=== PATIENT | female | born 1955 | race Caucasian/White ===

== ENCOUNTER 2017-09-03 16:15 | Observation (INO) ==
--- NOTE | 2017-09-03 16:33 | Emergency Department Note ---
Disposition Clinical Impression: Syncope and collapse Fracture of distal fibula Qualifiers: Encounter type: initial encounter Fracture type: closed Fracture morphology: other fracture Laterality: right Qualified Code(s): S82.831A - Other fracture of upper and lower end of right fibula, initial encounter for closed fracture TIA (transient ischemic attack) Qualifiers: Transient cerebral ischemia type: unspecified Qualified Code(s): G45.9 - Transient cerebral ischemic attack, unspecified Disposition: Admitted As Inpatient Condition: Good Referrals: Norberto Henriquez MD [Primary Care Provider] - Forms: ED Satisfaction Letter General Adult HPI - General Chief complaint: ED Syncope Stated complaint: 2 sycople episoides + leg pains Time Seen by Provider: 09/03/17 16:20 Nursing Notes Reviewed: Yes Vital Signs Reviewed: Yes - History of Present Illness HPI Narrative: 62-year-old female presents to the emergency department after having 2 episodes of syncope and collapse of the last couple days. Patient states that she feels a sensation as if the room is spinning, and she blacks out and falls. Patient states she loses consciousness. Patient fell yesterday and injured her right ankle. Patient complaining of left-sided calf pain. Patient also complaining of left shoulder pain. Patient denies any chest pain, pressure, tightness. She denies any palpitations. Patient denies any history of blood clots. Patient not actively having vertigo at this time. - Related Data Home Medications Medication Instructions Recorded Confirmed Atorvastatin [Lipitor] 40 mg PO HS 06/09/17 09/03/17 Cyclobenzaprine [Flexeril] 10 mg PO HS 06/09/17 09/03/17 Insulin Glargine [Lantus] 40 unit SQ QPM 06/09/17 09/03/17 Insulin Glargine [Lantus] 60 unit SQ QAM 06/09/17 09/03/17 Insulin LISPRO [Humalog Kwikpen 15 - 30 unit SQ TID 06/09/17 09/03/17 U-100] Levothyroxine [Synthroid] 75 mcg PO 0630 06/09/17 09/03/17 Meloxicam [Mobic] 7.5 mg PO DAILY 06/09/17 09/03/17 Sertraline [Zoloft] 100 mg PO DAILY 06/09/17 09/03/17 Calcium Carbonate [Calci-Mix] 500 mg PO DAILY 09/02/17 09/03/17 Gabapentin [Neurontin] 100 mg PO TID 09/02/17 09/03/17 Lisinopril [Zestril] 40 mg PO DAILY 09/02/17 09/03/17 metFORMIN [Glucophage] 1,000 mg PO 0800 09/02/17 09/03/17 Alendronate Sodium [Fosamax] 70 mg PO QWEEK 09/03/17 09/03/17 traZODone [TraZODone] 50 mg PO HS 09/03/17 09/03/17 Allergies Allergy/AdvReac Type Severity Reaction Status Date / Time sulfamethoxazole Allergy Gastrointestinal Verified 09/02/17 11:16 [From Bactrim] Upset trimethoprim [From Bactrim] Allergy Gastrointestinal Verified 09/02/17 11:16 Upset All systems ED: reviewed and negative except as stated. Review of Systems: As Per HPI Constitutional: Denies: fever Cardiovascular: Denies: chest pain, palpitations, dyspnea on exertion Respiratory: Denies: cough, dyspnea Gastrointestinal: Denies: abdominal pain, nausea, vomiting Genitourinary: Denies: urgency, dysuria, frequency Musculoskeletal: Reports: other (Right ankle pain, left shoulder pain). Denies : back pain, neck pain Neurological: Reports: vertigo. 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 Absent: scleral icterus - ENT ENT exam: normal exam, normal oropharynx - Neck Neck exam: Present: full ROM, trachea midline. Absent: tenderness, meningismus - Chest Chest inspection: Present: normal inspection, symmetric chest wall rise - Respiratory Respiratory exam: Present: normal lung sounds bilaterally. Absent: respiratory distress, wheezes, stridor - Cardiovascular Cardiovascular exam: Present: regular rate, normal rhythm, normal heart sounds - Abdominal Exam Abdominal exam: Present: soft, Non-Tender. Absent: distention, guarding, rebound - Expanded Lower Extremity Exam Hip/Pelvis exam: Present: other (Tenderness 3 cm above the right lateral malleolus) - Back Exam Back exam: Present: normal inspection, full ROM - Neurological Exam Neurological exam: Present: alert, oriented X3 - Psychiatric Psychiatric exam: Present: normal affect, normal mood Course Vital Signs Temperature 98.3 F 09/03/17 16:21 Pulse Rate 92 09/03/17 16:21 Respiratory Rate 18 09/03/17 16:21 Blood Pressure 170/77 09/03/17 16:21 O2 Sat by Pulse Oximetry 100 09/03/17 16:21 Temperature 98.3 F 09/03/17 16:21 Pulse Rate 86 09/03/17 18:51 Respiratory Rate 18 09/03/17 18:51 Blood Pressure 163/87 09/03/17 18:51 O2 Sat by Pulse Oximetry 97 09/03/17 18:51 Oxygen Delivery Oxygen Delivery Room Air Medical Decision Making - MDM Narrative Medical decision making narrative: 62-year-old female presents to the emergency department after multiple episodes of syncope. EKG did not reveal any evidence of ischemia. Troponin was negative. BNP was not elevated. Chest x-ray was normal. D-dimer was elevated. CT of the chest was obtained and does not reveal any evidence of pulmonary embolus. There is a small pericardial effusion. However, this is stable from a previous exam. On physical exam, patient was neurologically intact. Due to the patient having the abrupt vertiginous symptoms with loss of consciousness, there was concern for possible intracranial hemorrhage. CT scan of the head was obtained and did not reveal any intracranial abnormality. It may be more likely TIA. She was given 81 mg aspirin in the emergency department. Ankle x-ray reveals an oblique nondisplaced fracture of the distal fibula of the right ankle. I spoke with Dr. Ivan, the orthopedic surgeon. He stated it was okay to place and posterior splint and he would follow patient in the hospital. Shoulder x-ray is negative for any acute abnormality. Urinalysis reveals mild hematuria, moderate bacteria, moderate leukocyte esterase. Patient does not have any symptoms of dysuria, or urinary . We will not treat a urinary tract infection at this time. I spoke with patient and family at bedside regarding the results of all imaging and laboratory testing. He stated that we would admit the patient for further evaluation as she is having 2 of these syncopal episodes with loss of consciousness and warrants further evaluation with possible CTA or MRI. I spoke with the hospitalist about the patient and he agreed to admit. Patient hemodynamically stable and not in any acute distress at time of admission. Chest X-Ray 09/03/17 17:05 IMPRESSION: No acute process. D/ / Sudeep Villegas MD / Sudeep Villegas MD Interpreting Provider: Sudeep Villegas MD Head CT 09/03/17 17:05 IMPRESSION: 1. No acute intracranial abnormality. 2. Mucosal opacification involving the sphenoid sinuses. D/ / Vu Ford / Vu Ford Interpreting Provider: Vu Ford Ankle X-Ray 09/03/17 17:06 IMPRESSION: Oblique nondisplaced fracture of the distal fibula D/ / Sudeep Villegas MD / Sudeep Villegas MD Interpreting Provider: Sudeep Villegas MD Shoulder X-Ray 09/03/17 17:06 IMPRESSION: No acute abnormalities. Stable mild degenerative changes to the AC joint. D/ / 09/03/2017 17:53:10 Richard Wells MD / amanda Interpreting Provider: Richard Wells MD Chest CTA 09/03/17 18:41 IMPRESSION: CTA chest: Negative study for pulmonary embolism. Small pericardial effusion, similar to prior CT abdomen and pelvis 06/09/2017. CT abdomen and pelvis: No acute or focal findings are seen to the abdomen or pelvis. Small hiatal hernia. D/ / 09/03/2017 19:21:54 Richard Wells MD / amanda Interpreting Provider: Richard Wells MD Abdomen/Pelvis CT 09/03/17 18:43 IMPRESSION: CTA chest: Negative study for pulmonary embolism. Small pericardial effusion, similar to prior CT abdomen and pelvis 06/09/2017. CT abdomen and pelvis: No acute or focal findings are seen to the abdomen or pelvis. Small hiatal hernia. D/ / 09/03/2017 19:21:54 Richard Wells MD / amanda Interpreting Provider: Richard Wells MD - Lab Data Result diagrams: 09/03/17 16:41 Lab Results 09/03/17 09/03/17 09/03/17 Range/Units 16:41 16:41 16:41 D-Dimer 1424 H (0-500) ng/mLFEU Sodium 140 (136-145) mEq/L Potassium 4.0 (3.5-5.1) mEq/L Chloride 105 (98-107) mEq/L Carbon Dioxide 23 (23-29) mEq/L BUN 16 (8-23) mg/dL Creatinine 0.84 (0.60-1.20) mg/dL Est GFR ( Amer) > 60 (> 60) Est GFR (Non-Af Amer) > 60 (> 60) BUN/Creatinine Ratio 19 (6-26) Glucose 239 H (70-105) mg/dL Calculated Osmolality 299 (280-300) Calcium 9.9 (8.6-10.3) mg/dL Troponin I < 0.03 (< 0.04) ng/mL B-Natriuretic Peptide 11 (Less than 100) pg/mL Urine Color (Yellow) Urine Clarity (Clear) Urine pH (5.0-8.0) pH Units Ur Specific [place] (1.010-1.025) Urine Protein (Neg-Trace) mg/dL Urine Glucose (UA) (Normal) mg/dL Urine Ketones (Negative) mg/dL Urine Blood (Negative) Urine Nitrite (Negative) Urine Bilirubin (Negative) Urine Urobilinogen (Normal) mg/dL Ur Leukocyte Esterase (Negative) Urine Microscopic RBC (0-3) per hpf Urine Microscopic WBC (0-3) per hpf Ur Squamous Epith Cells (None-Few) per lpf Urine Bacteria (None-Few) per hpf Hyaline Casts (None-Few) per lpf Ur Culture Indicated? (NO) 09/03/17 Range/Units 17:26 D-Dimer (0-500) ng/mLFEU Sodium (136-145) mEq/L Potassium (3.5-5.1) mEq/L Chloride (98-107) mEq/L Carbon Dioxide (23-29) mEq/L BUN (8-23) mg/dL Creatinine (0.60-1.20) mg/dL Est GFR ( Amer) (> 60) Est GFR (Non-Af Amer) (> 60) BUN/Creatinine Ratio (6-26) Glucose (70-105) mg/dL Calculated Osmolality (280-300) Calcium (8.6-10.3) mg/dL Troponin I (< 0.04) ng/mL B-Natriuretic Peptide (Less than 100) pg/mL Urine Color Yellow (Yellow) Urine Clarity Cloudy A (Clear) Urine pH 7.0 (5.0-8.0) pH Units Ur Specific [place] > 1.030 H (1.010-1.025) Urine Protein Negative (Neg-Trace) mg/dL Urine Glucose (UA) >=1000 H (Normal) mg/dL Urine Ketones Negative (Negative) mg/dL Urine Blood Small H (Negative) Urine Nitrite Negative (Negative) Urine Bilirubin Negative (Negative) Urine Urobilinogen Normal (Normal) mg/dL Ur Leukocyte Esterase Small H (Negative) Urine Microscopic RBC 15-30 H (0-3) per hpf Urine Microscopic WBC 30-50 H (0-3) per hpf Ur Squamous Epith Cells Many H (None-Few) per lpf Urine Bacteria Moderate H (None-Few) per hpf Hyaline Casts None Seen (None-Few) per lpf Ur Culture Indicated? NO. A (NO) - EKG Data EKG #1 EKG attestation: Yes I reviewed and interpreted this EKG. EKG results narrative: 16:45 Ventricular rate 81 bpm, OK interval 159 ms, QRS duration 75 ms, QT 372 ms, QTC 409 ms, normal axis. Sinus rhythm with a ventricular rate of 81 bpm. No evidence of any ischemic ST changes noted on this electrocardiogram when in comparison with the previous study performed on 01/28/2014. Attestation Statement - Attestation Attestation: I, Mata Tobar DO, examined this patient [id number] and my medical decision-making was reviewed with Dr. Franck Jung, Resident Physician. I agree with the documented findings, disposition and treatment plan as described except to the extent set forth below. Please see my progress notes for details.
[2017-09-03 17:37] LABS: BUN/Creatinine Ratio 19 (6-26); Blood Urea Nitrogen 16 mg/dL (8-23); Calcium 9.9 mg/dL (8.6-10.3); Carbon Dioxide 23 mEq/L (23-29); Chloride 105 mEq/L (98-107); Glucose 239 mg/dL (70-105); Osmolality,Calculated 299 (280-300); Sodium 140 mEq/L (136-145); eGFR For African Americans > 60 (> 60); eGFR For Non-African Americans > 60 (> 60)
[2017-09-03 17:38] LABS: Troponin I < 0.03 ng/mL (< 0.04)
[2017-09-03 17:39] LABS: Bilirubin,Urine Negative (Negative); Blood,Urine Small (Negative); Clarity,Urine Cloudy (Clear); Color,Urine Yellow (Yellow); Glucose,Urine (UA) >=1000 mg/dL (Normal); Ketones,Urine Negative (Negative); Leukocyte Esterase,Urine Small (Negative); Nitrite,Urine Negative (Negative); Protein,Urine Negative (Neg-Trace); Specific Gravity,Urine > 1.030 (1.010-1.025); Urobilinogen,Urine Normal (Normal)
[2017-09-03 17:41] LABS: Bacteria,Urine Moderate per hpf (None-Few); Hyaline Casts,Urine None Seen per lpf (None-Few); RBC,Urine 15-30 per hpf (0-3); Squamous Epithelial Cell,Urine Many per lpf (None-Few); WBC,Urine 30-50 per hpf (0-3)
--- NOTE | 2017-09-03 18:35 | Emergency Department Note ---
Disposition Clinical Impression: Syncope and collapse Fracture of distal fibula Qualifiers: Encounter type: initial encounter Fracture type: closed Fracture morphology: other fracture Laterality: right Qualified Code(s): S82.831A - Other fracture of upper and lower end of right fibula, initial encounter for closed fracture TIA (transient ischemic attack) Qualifiers: Transient cerebral ischemia type: unspecified Qualified Code(s): G45.9 - Transient cerebral ischemic attack, unspecified Disposition: Admitted As Inpatient Condition: Good Time of Disposition: 09:33 General Adult HPI - General Chief complaint: ED Fall Stated complaint: 2 sycople episoides + leg pains Time Seen by Provider: 09/03/17 16:20 Source: patient, EMS Limitations: no limitations - History of Present Illness Pain Scale: 8 - Related Data Home Medications Medication Instructions Recorded Confirmed Atorvastatin [Lipitor] 40 mg PO HS 06/09/17 09/03/17 Cyclobenzaprine [Flexeril] 10 mg PO HS 06/09/17 09/03/17 Insulin Glargine [Lantus] 40 unit SQ QPM 06/09/17 09/03/17 Insulin Glargine [Lantus] 60 unit SQ QAM 06/09/17 09/03/17 Insulin LISPRO [Humalog Kwikpen 15 - 30 unit SQ TID 06/09/17 09/03/17 U-100] Levothyroxine [Synthroid] 75 mcg PO 0630 06/09/17 09/03/17 Meloxicam [Mobic] 7.5 mg PO DAILY 06/09/17 09/03/17 Sertraline [Zoloft] 100 mg PO DAILY 06/09/17 09/03/17 Calcium Carbonate [Calci-Mix] 500 mg PO DAILY 09/02/17 09/03/17 Gabapentin [Neurontin] 100 mg PO TID 09/02/17 09/03/17 Lisinopril [Zestril] 40 mg PO DAILY 09/02/17 09/03/17 metFORMIN [Glucophage] 1,000 mg PO 0800 09/02/17 09/03/17 Alendronate Sodium [Fosamax] 70 mg PO QWEEK 09/03/17 09/03/17 Allergies Allergy/AdvReac Type Severity Reaction Status Date / Time sulfamethoxazole Allergy Gastrointestinal Verified 09/02/17 11:16 [From Bactrim] Upset trimethoprim [From Bactrim] Allergy Gastrointestinal Verified 09/02/17 11:16 Upset Past Medical History - Past Medical History Medical history: Reports: diabetes, hyperlipidemia, hypertension Surgical history: Reports: hysterectomy, thyroidectomy Psychiatric history: Reports: depression MINESWEEPING OFFICER history: Reports: no MINESWEEPING OFFICER history - Social History Smoking Status: Never smoker Smokeless Tobacco Status: No Alcohol use: Reports: none Drug use: Reports: none Physical Exam - General Limitations: no limitations General appearance: alert, in no apparent distress Course Vital Signs Temperature 98.3 F 09/03/17 16:21 Pulse Rate 92 09/03/17 16:21 Respiratory Rate 18 09/03/17 16:21 Blood Pressure 170/77 09/03/17 16:21 O2 Sat by Pulse Oximetry 100 09/03/17 16:21 Temperature 97.9 F 09/04/17 07:38 Pulse Rate 77 09/04/17 07:38 Respiratory Rate 17 09/04/17 07:38 Blood Pressure 138/69 09/04/17 07:38 O2 Sat by Pulse Oximetry 96 09/04/17 07:38 Oxygen Delivery Oxygen Delivery Room Air Medical Decision Making - Lab Data Result diagrams: 09/04/17 03:23 09/04/17 03:23 Lab Results 09/03/17 09/03/17 09/03/17 Range/Units 16:41 16:41 16:41 D-Dimer 1424 H (0-500) ng/mLFEU Sodium 140 (136-145) mEq/L Potassium 4.0 (3.5-5.1) mEq/L Chloride 105 (98-107) mEq/L Carbon Dioxide 23 (23-29) mEq/L BUN 16 (8-23) mg/dL Creatinine 0.84 (0.60-1.20) mg/dL Est GFR ( Amer) > 60 (> 60) Est GFR (Non-Af Amer) > 60 (> 60) BUN/Creatinine Ratio 19 (6-26) Glucose 239 H (70-105) mg/dL Calculated Osmolality 299 (280-300) Calcium 9.9 (8.6-10.3) mg/dL Troponin I < 0.03 (< 0.04) ng/mL B-Natriuretic Peptide 11 (Less than 100) pg/mL Urine Color (Yellow) Urine Clarity (Clear) Urine pH (5.0-8.0) pH Units Ur Specific [place] (1.010-1.025) Urine Protein (Neg-Trace) mg/dL Urine Glucose (UA) (Normal) mg/dL Urine Ketones (Negative) mg/dL Urine Blood (Negative) Urine Nitrite (Negative) Urine Bilirubin (Negative) Urine Urobilinogen (Normal) mg/dL Ur Leukocyte Esterase (Negative) Urine Microscopic RBC (0-3) per hpf Urine Microscopic WBC (0-3) per hpf Ur Squamous Epith Cells (None-Few) per lpf Urine Bacteria (None-Few) per hpf Hyaline Casts (None-Few) per lpf Ur Culture Indicated? (NO) 09/03/17 Range/Units 17:26 D-Dimer (0-500) ng/mLFEU Sodium (136-145) mEq/L Potassium (3.5-5.1) mEq/L Chloride (98-107) mEq/L Carbon Dioxide (23-29) mEq/L BUN (8-23) mg/dL Creatinine (0.60-1.20) mg/dL Est GFR ( Amer) (> 60) Est GFR (Non-Af Amer) (> 60) BUN/Creatinine Ratio (6-26) Glucose (70-105) mg/dL Calculated Osmolality (280-300) Calcium (8.6-10.3) mg/dL Troponin I (< 0.04) ng/mL B-Natriuretic Peptide (Less than 100) pg/mL Urine Color Yellow (Yellow) Urine Clarity Cloudy A (Clear) Urine pH 7.0 (5.0-8.0) pH Units Ur Specific [place] > 1.030 H (1.010-1.025) Urine Protein Negative (Neg-Trace) mg/dL Urine Glucose (UA) >=1000 H (Normal) mg/dL Urine Ketones Negative (Negative) mg/dL Urine Blood Small H (Negative) Urine Nitrite Negative (Negative) Urine Bilirubin Negative (Negative) Urine Urobilinogen Normal (Normal) mg/dL Ur Leukocyte Esterase Small H (Negative) Urine Microscopic RBC 15-30 H (0-3) per hpf Urine Microscopic WBC 30-50 H (0-3) per hpf Ur Squamous Epith Cells Many H (None-Few) per lpf Urine Bacteria Moderate H (None-Few) per hpf Hyaline Casts None Seen (None-Few) per lpf Ur Culture Indicated? NO. A (NO) Attestation Statement - Attestation Attestation: I, Mata Tobar DO, examined this patient [id number] and my medical decision-making was reviewed with Dr. Franck Jung, Resident Physician. I agree with the documented findings, disposition and treatment plan as described except to the extent set forth below. Please see my progress notes for details. 62-year-old female seen and evaluated. Presents emergency room at 2 syncopal events yesterday. Patient was out working in the yard throughout the day. She fell issues thrill up and then passed out. She denied any other symptoms. She cannot remember the events. She woke up in the event without any issue. She does not remember hitting her head but she does have a knot on the back of her head. She had another subsequent event that was similar. 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 She has been treated and evaluated for this at the [facility]. She denies any presentation like that at this time. She was concerned because after the syncopal events yesterday she has had persistent cramps and pain in her legs to the point where she has been so weak that she has not gotten out of bed. She denies any chest pain shortness of breath headache vision changes nausea vomiting or diarrhea. Denies any fevers or chills. Denies any new medications or changes in symptoms presentation of this time. Patient has no history of cardiac related arrhythmia or other abnormalities at this point. Physical exam is unremarkable. Head is atraumatic pupils are equal round reactive artifact muscles are intact. He does membranes are moist. Lungs are clear heart is regular abdomen is soft. Patient does move all 4 of her extremities without any difficulty. No visible signs of ataxia. Patient says that she just generally feels weak. Workup will be completed with labs including CBC chemistry electrolytes as well as urinalysis. Patient currently is in no apparent distress. CT of the head will also be added on. Once his workup is completed expect patient will need admission for syncopal event of unknown etiology that occurred yesterday and his cause persistent symptoms since then. She will be fluid resuscitated here in the emergency room and then labs will be reviewed see detailed documentation of the physical exam, medical intervention, medical decision-making and disposition in the resident physician' s note. article care provider the patient's treatment course at this time. 1835 Patient has contaminated urinalysis gross blood. Patient denies any abdominal pain other symptoms. Patient will have imaging modalities at this point secondary to an elevated d-dimer as well. The remainder the labs are still pending. Disposition pending the full treatment course. 1900 Patient has acceptable hospitals for evaluation syncopal events. CT of the chest and abdomen are unremarkable this time. Patient does have an ankle fracture in the right leg. Orthopedics will be consult. No other acute pathology noted this time.
[2017-09-03] MEDS ORDERED: Isovue-370 500 ML INFUS..BTL IV ONE ×2 (18:41→18:43)
[2017-09-03] MEDS ORDERED: Aspirin Enteric Coated 81 MG Tablet PO ONE (19:43)
--- NOTE | 2017-09-03 20:19 | Internal Med History&Physical ---
<Hetcor Celestin - Last Filed: 09/03/17 21:17> Date of Encounter: 09/03/17 Time of Encounter: 20:12 Internal Medicine - H&P: HPI Chief complaint: syncope Admitted From: Home Plans for Post Hospital Care: Home History of present illness: Ms. Sampson is a 62 year old female w/ pmh of vasculitis seen at [facility], HTN, DM presents after losing consciousness yesterday and experiencing a fall. Patient was working outside in the yard around 4 pm yesterday for about an hour when she unexpectedly felt woozy, vomited and then lost consciousness. Patient fell to the ground injuring her shoulder and right leg. Patient has never lost consciousness before. Patient admits to drinking 3-4 glasses of water a day, and believes she drank less yesterday morning. She takes her blood pressure medications in the AM. Patient went on with the rest of her day without any residual symptoms. Patient woke up this morning in sharp pain in her left calf and whole right leg from ankle to knee. She was unable to stand or bear weight on her legs, which prompted her to come to [place]. Patient currently is asymptomatic besides the pain in her legs. LoC was witnessed by 3 year old grand daughter. Patient denies sob, chest pain, change in urine symptoms, fever , chills, sick contacts, swelling in her legs, headaches, confusion. Patient states she has had petechiae on her lower legs for the last month which she is seen at [facility] for and diagnosed with vasculitis. Past Med Surg Social Fam HX - Past Medical History Medical history: diabetes, hyperlipidemia, hypertension Psychiatric history: depression - Past Surgical History Surgical History: hysterectomy, thyroidectomy - Social History Smoking Status: Never smoker Smokeless Tobacco Status: No Alcohol use: none Drug use: none - Family History Father Living Status: Brother Hx Family Endocrine Disorder: Yes (DM) Internal Medicine - H&P: Meds Atorvastatin [Lipitor] 40 mg PO HS 06/09/17 [History] Cyclobenzaprine [Flexeril] 10 mg PO HS 06/09/17 [History] Insulin Glargine [Lantus] 40 unit SQ QPM 06/09/17 [History] Insulin Glargine [Lantus] 60 unit SQ QAM 06/09/17 [History] Insulin LISPRO [Humalog Kwikpen U-100] 15 - 30 unit SQ TID 06/09/17 [History] Levothyroxine [Synthroid] 75 mcg PO 0630 06/09/17 [History] Meloxicam [Mobic] 7.5 mg PO DAILY 06/09/17 [History] Sertraline [Zoloft] 100 mg PO DAILY 06/09/17 [History] Calcium Carbonate [Calci-Mix] 500 mg PO DAILY 09/02/17 [History] Gabapentin [Neurontin] 100 mg PO TID 09/02/17 [History] Lisinopril [Zestril] 40 mg PO DAILY 09/02/17 [History] metFORMIN [Glucophage] 1,000 mg PO 0800 09/02/17 [History] Alendronate Sodium [Fosamax] 70 mg PO QWEEK 09/03/17 [History] traZODone [TraZODone] 50 mg PO HS 09/03/17 [History] 3 Allergy/AdvReac Type Severity Reaction Status Date / Time sulfamethoxazole Allergy Gastrointestinal Verified 09/02/17 11:16 [From Bactrim] Upset trimethoprim [From Bactrim] Allergy Gastrointestinal Verified 09/02/17 11:16 Upset All Systems PM: A 10-system review of systems was performed and is negative for pertinent findings except as documented above in the HPI. - Constitutional Constitutional: falls, no chills, no excessive sweating, no fatigue, no fever(s) , no lethargy, no malaise, no night sweats, no weakness, no weight gain, no weight loss - EENT Eyes: no blurry vision, no change in vision, no discharge, no pain, no photophobia Ears: no ear discharge, no ear pain, no tinnitus Nose, mouth and throat: no dysphagia, no nasal discharge, no neck pain, no sore throat - Cardiovascular Cardiovascular ROS IM: no chest pain, no claudication, no diaphoresis, no dyspnea, no dyspnea on exertion, no edema, no irregular heart rhythm, no lightheadedness, no orthopnea, no palpitations, no paroxysmal nocturnal dyspnea , no syncope - Respiratory Respiratory: no cough, no dyspnea, no dyspnea on exertion, no wheezing, no chest congestion, no excessive phlegm production - Gastrointestinal Gastrointestinal: no abdominal pain, no diarrhea, no hematemesis, no hematochezia, no melena, no nausea, no vomiting - Genitourinary Genitourinary: no change in urinary stream, no dysuria, no flank pain, no hematuria - Musculoskeletal Musculoskeletal ROS IM: no numbness, no tingling - Integumentary Integumentary IM: no rash, no unusual bruising - Neurological Neurological ROS: no confusion, no convulsions, no focal weakness, no numbness, no tingling, no tremor(s) - Hematologic/Lymphatic Hematologic/Lymphatic: no easy bruising - Constitutional Vitals: Temp Pulse Resp BP Pulse Ox 98.3 F 86 18 163/87 97 09/03/17 16:21 09/03/17 18:51 09/03/17 18:51 09/03/17 18:51 09/03/17 18:51 General appearance: Present: cooperative, A&O X 3, no acute distress, answers questions appropriately - Head Head exam: Present: atraumatic, normocephalic - Eye Eye exam: Present: PERRL, conjuntiva pink, sclera anicteric Pupils: Present: PERRL - Neck Neck exam general surgery: Present: supple, trachea midline. Absent: lymphadenopathy - Respiratory Respiratory exam: Present: CTAB. Absent: accessory muscle use, rales, rhonchi, wheezes - Cardiovascular Cardiovascular exam: Present: RRR. Absent: diastolic murmur, gallop, irregular rhythm, JVD, rubs, systolic murmur, tachycardia - GI/Abdominal GI/Abdominal exam: Present: normal bowel sounds, soft, no peritoneal signs. Absent: distended, firm, guarding, hepatomegaly, mass, rebound, rigid, splenomegaly, tenderness - Extremities Exam Extremities exam: Present: full ROM, normal capillary refill, tenderness (Left calf; R leg from ankle to knee), warm, radial pulses palpable and symmetrical. Absent: calf tenderness, cyanotic, joint swelling, pedal edema Additional comments: diffuse petechiae on dorsal right foot. - Neurological Exam Neurological exam: Present: alert, CN II-XII intact, oriented X3, no focal deficits, strengths equal and symetr throughout. Absent: pronater drift, facial droop, speech deficit - Skin Skin exam: Present: dry, intact Internal Med - H&P Results - Labs CBC & Chem 7: 09/03/17 16:41 Labs: BMP 09/03/17 16:41 Sodium 140 Potassium 4.0 Chloride 105 Carbon Dioxide 23 BUN 16 Creatinine 0.84 Glucose 239 H Calcium 9.9 Cardiac Enzymes 09/03/17 Range/Units 16:41 Troponin I < 0.03 (< 0.04) ng/mL Urine 09/03/17 Range/Units 17:26 Urine Color Yellow (Yellow) Urine Clarity Cloudy A (Clear) Urine pH 7.0 (5.0-8.0) pH Units Ur Specific [place] > 1.030 H (1.010-1.025) Urine Protein Negative (Neg-Trace) mg/dL Urine Glucose (UA) >=1000 H (Normal) mg/dL - Impressions ITS Impressions Chest X-Ray 09/03/17 17:05 IMPRESSION: No acute process. D/ / Sudeep Villegas MD / Sudeep Villegas MD Interpreting Provider: Sudeep Villegas MD Head CT 09/03/17 17:05 IMPRESSION: 1. No acute intracranial abnormality. 2. Mucosal opacification involving the sphenoid sinuses. D/ / Vu Ford / Vu Ford Interpreting Provider: Vu Ford Ankle X-Ray 09/03/17 17:06 IMPRESSION: Oblique nondisplaced fracture of the distal fibula D/ / Sudeep Villegas MD / Sudeep Villegas MD Interpreting Provider: Sudeep Villegas MD Shoulder X-Ray 09/03/17 17:06 IMPRESSION: No acute abnormalities. Stable mild degenerative changes to the AC joint. D/ / 09/03/2017 17:53:10 Richard Wells MD / amanda Interpreting Provider: Richard Wells MD Chest CTA 09/03/17 18:41 IMPRESSION: CTA chest: Negative study for pulmonary embolism. Small pericardial effusion, similar to prior CT abdomen and pelvis 06/09/2017. CT abdomen and pelvis: No acute or focal findings are seen to the abdomen or pelvis. Small hiatal hernia. D/ / 09/03/2017 19:21:54 Richard Wells MD / amanda Interpreting Provider: Richard Wells MD Abdomen/Pelvis CT 09/03/17 18:43 IMPRESSION: CTA chest: Negative study for pulmonary embolism. Small pericardial effusion, similar to prior CT abdomen and pelvis 06/09/2017. CT abdomen and pelvis: No acute or focal findings are seen to the abdomen or pelvis. Small hiatal hernia. D/ / 09/03/2017 19:21:54 Richard Wells MD / amanda Interpreting Provider: Richard Wells MD - Assessment and plan (1) Syncope and collapse Current Visit: Yes Status: Acute Assessment and plan: Patient experienced 1 syncopal episode yesterday afternoon after spending time outdoors and not well hydrating. Syncopal episode most likely due to dehydration/vasovagal vs possible hypoglycemia from poorly controlled diabetes vs medication induced vs less likely orthostatic hypotension vs possible UTI. In the ed patient was worked up for DVT, PE and brain hemorrhage, Bilateral lower extremity doppler, CTA and CT head were negative for acute processes. Medication may have been a contributor, but less likely the cause as all hypertensive medications were taken 7 hours prior to event. Will treat for presumed dehydration, and further work up for syncope. hgb 12.1, anemia not likely a contributor. ECG showed sinus rhythm. Exam showed no neurological deficits. No murmurs heard on exam. BNP and trop negative - continue IVF - orthostatic vitals - monitor BG closely - trop trend x2 - morning labs - echo and carotid doppler ordered (2) Fracture of distal fibula Current Visit: Yes Status: Acute Assessment and plan: Right ankle XR confirms oblique, nondisplaced fracture of the distal fibula. ED consulted ortho. Unlikely requiring surgery, will start diabetic diet - diabetic diet - pain management with rx Qualifiers: Encounter type: initial encounter Fracture type: closed Fracture morphology: other fracture Laterality: right Qualified Code(s): S82.831A - Other fracture of upper and lower end of right fibula, initial encounter for closed fracture (3) Diabetes Current Visit: Yes Status: Acute Assessment and plan: diabetes is poorly controlled in the past, recent hospitalization patient BG was >600. - hold home Rx - medium SSI - levemir 40 BID Qualifiers: Qualified Code(s): E11.9 - Type 2 diabetes mellitus without complications; Z79.4 - terminal gauger (current) use of insulin (4) Hypertension Current Visit: Yes Status: Acute Assessment and plan: continue home rx Qualifiers: Qualified Code(s): I10 - Essential (primary) hypertension (5) Vasculitis Current Visit: Yes Status: Acute Assessment and plan: currently followed by [facility]. Patient has had vessels in feet biopsied and confirmed Vasculitis. Patient has 1 month history of petechiae in lower extremities that is improving (6) Dehydration Current Visit: Yes Status: Acute Assessment and plan: syncopal episode most likely due to dehydration. fluid resuscitation. (7) DVT prophylaxis Current Visit: Yes Status: Acute Assessment and plan: SQ heparin (8) UTI (urinary tract infection) Current Visit: Yes Status: Acute Assessment and plan: U/A in ed mildly suggestive of UTI, leuks small and nitrite negative. No leukocytosis and vitals stable. will treat with macrobid. Qualifiers: Qualified Code(s): N39.0 - Urinary tract infection, site not specified - Time Spent With Patient Total time spent is greater than 50% in coordination of care (as documented) at patient's floor/unit and/or counseling patient: <Desiree Bonilla - Last Filed: 09/03/17 22:34> Date of Encounter: 09/03/17 Internal Medicine - H&P: HPI History of present illness: Ms. Sampson is a 62 year old female All Systems PM: A 10-system review of systems was performed and is negative for pertinent findings except as documented above in the HPI. - Constitutional Vitals: Temp Pulse Resp BP Pulse Ox 99.7 F H 79 17 162/77 96 09/03/17 21:55 09/03/17 21:55 09/03/17 21:55 09/03/17 21:55 09/03/17 21:55 Internal Med - H&P Results - Labs CBC & Chem 7: 09/03/17 16:41 Labs: Cardiac Enzymes 09/03/17 Range/Units 21:19 Troponin I < 0.03 (< 0.04) ng/mL - Attending Attestation I have seen and examined this patient independently. I have discussed with resident physician Dr. Celestin regarding the management plan. Agree with the documentation. - Assessment and plan (1) Dehydration Current Visit: Yes Status: Acute (2) DVT prophylaxis Current Visit: Yes Status: Acute (3) Fracture of distal fibula Current Visit: Yes Status: Acute Qualifiers: Encounter type: initial encounter Fracture type: closed Fracture morphology: other fracture Laterality: right Qualified Code(s): S82.831A - Other fracture of upper and lower end of right fibula, initial encounter for closed fracture (4) Syncope and collapse Current Visit: Yes Status: Acute (5) Diabetes Current Visit: Yes Status: Acute Qualifiers: Qualified Code(s): E11.9 - Type 2 diabetes mellitus without complications; Z79.4 - terminal gauger (current) use of insulin (6) Hypertension Current Visit: Yes Status: Acute Qualifiers: Qualified Code(s): I10 - Essential (primary) hypertension (7) Vasculitis Current Visit: Yes Status: Acute (8) UTI (urinary tract infection) Current Visit: Yes Status: Acute Qualifiers: Qualified Code(s): N39.0 - Urinary tract infection, site not specified - Time Spent With Patient Total time spent is greater than 50% in coordination of care (as documented) at patient's floor/unit and/or counseling patient:
[2017-09-03] MEDS ORDERED: Naloxone 0.4 MG/ML INJ IVP PRN (20:44)
[2017-09-03] MEDS ORDERED: Dextrose Gel 15 GM/37.5 ML TUBE PO PRN ×2 (20:47)
[2017-09-03] MEDS ORDERED: *HR* Dextrose 50 % in Water (Syg) 50 ML SYRINGE IVP PRN (20:47)
[2017-09-03] MEDS ORDERED: D5% in Water 1,000 ML IVC PRN (20:47)
[2017-09-03 22:01] LABS: Magnesium 2.3 mg/dL (1.6-2.6); Phosphorous 3.6 mg/dL (2.7-4.5)
[2017-09-03] MEDS: Insulin LISPRO 300 UNITS/3 ML VIAL SQ SCH (22:44)
[2017-09-03] MEDS: traZODone 50 MG TABLET PO SCH (23:11)
[2017-09-03] MEDS: 0.9 % Sodium Chloride 1,000 ML IVC SCH (23:11)
[2017-09-03] MEDS: Acetaminophen 325 MG TABLET PO PRN (23:18)
[2017-09-04 05:07] LABS: Basophils % 0.6 %; Hemoglobin 11.8 g/dL (11.5-15.4); Immature Granulocytes % 0.2 % (0-4); Nucleated Red Blood Cells 0.2 /100 WBC (0); Red Cell Distribution Width 14.8 % (11.5-14.5)
[2017-09-04 05:12] LABS: Basophils # 0.1 K/mcL (0.0-0.2); Eosinophils # 0.1 K/mcL (0.0-0.6); Eosinophils % 1.2 %; Hematocrit 36.3 % (35.3-44.9); Lymphocytes # 2.3 K/mcL (0.6-4.6); Lymphocytes % 23.9 %; Mean Corpuscular HGB Conc 32.5 g/dL (31.6-35.5); Mean Corpuscular Hemoglobin 27.9 pg (28.0-33.3); Mean Corpuscular Volume 85.8 fL (83.0-100.0); Mean Platelet Volume 10.7 fL (9.4-12.4); Monocytes # 0.7 K/mcL (0.0-1.3); Monocytes % 7.3 %; Neutrophils # 6.4 K/mcL (1.6-8.9); Platelet Count 199 K/mcL (140-400); Red Blood Count 4.23 M/mcL (3.82-4.97); Segmented Neutrophils % 66.8 %
[2017-09-04 05:28] LABS: Alanine Aminotransferase 9 Units/L (7-52); Albumin 3.8 g/dL (3.5-5.7); Albumin/Globulin Ratio 1.3 (1.1-2.2); Alkaline Phosphatase 101 Units/L (34-104); Aspartate Amino Transferase 11 Units/L (13-39); BUN/Creatinine Ratio 22 (6-26); Bilirubin,Total 0.5 mg/dL (0.3-1.0); Blood Urea Nitrogen 16 mg/dL (8-23); Carbon Dioxide 22 mEq/L (23-29); Chloride 108 mEq/L (98-107); Glucose 210 mg/dL (70-105); Osmolality,Calculated 295 (280-300); Potassium 3.8 mEq/L (3.5-5.1); Sodium 139 mEq/L (136-145); Total Protein 6.8 g/dL (6.4-8.9); eGFR For African Americans > 60 (> 60); eGFR For Non-African Americans > 60 (> 60)
[2017-09-04] MEDS: *HR* Heparin 5,000 UNIT/ML VIAL SQ SCH ×2 (05:37→17:05)
[2017-09-04] MEDS: Acetaminophen 325 MG TABLET PO PRN ×2 (05:42→21:14)
[2017-09-04 06:00] LABS: Platelet Estimate Normal (Normal)
[2017-09-04] MEDS: 0.9 % Sodium Chloride 1,000 ML IVC SCH (08:51)
[2017-09-04] MEDS: Insulin LISPRO 300 UNITS/3 ML VIAL SQ SCH ×4 (08:52→21:15)
[2017-09-04] MEDS: Nitrofurantoin (BID) 100 MG CAPSULE PO SCH ×2 (08:55→17:05)
[2017-09-04] MEDS: Lisinopril 20 MG TABLET PO SCH (08:55)
[2017-09-04] MEDS: Gabapentin 100 MG CAPSULE PO SCH ×3 (08:56→21:15)
[2017-09-04 09:10] LABS: Thyroid Stimulating Hormone 2.646 mcIU/mL (0.340-5.600)
[2017-09-04] MEDS: Insulin DETEMIR 100 UNIT/ML X5UNITS SQ SCH ×2 (09:35→21:14)
[2017-09-04] MEDS: *HR* HYDROcodone/Acet 5/325 mg TABLET PO PRN ×2 (12:21→18:34)
--- NOTE | 2017-09-04 13:12 | Internal Med Progress Note ---
Date of Encounter: 09/04/17 Time of Encounter: 13:12 - Assessment and plan (1) Dehydration Current Visit: Yes Status: Acute Assessment and plan: syncopal episode most likely due to dehydration. Received IVF Patient is tolerating oral intake (2) Fracture of distal fibula Current Visit: Yes Status: Acute Assessment and plan: Right ankle XR confirms oblique, nondisplaced fracture of the distal fibula. ED consulted ortho. Unlikely requiring surgery, placed on diet. Awaiting recommendations Cont with pain medications Elevate and splint Qualifiers: Encounter type: initial encounter Fracture type: closed Fracture morphology: other fracture Laterality: right Qualified Code(s): S82.831A - Other fracture of upper and lower end of right fibula, initial encounter for closed fracture (3) Syncope and collapse Current Visit: Yes Status: Acute Assessment and plan: Patient experienced 1 syncopal episode after spending time outdoors and not well hydrating. Suspect rt to dehydration/ vasovagal, she is on antihypertensive however these were taken several hours prior to incident UTI could be contributing factor however this is very mild . ED workup negative DVT PE or CVA. Syncope workup Cartoid duplex : Impressions: The right internal carotid artery has a 40-59% stenosis. The left internal carotid artery has a 40-59% stenosis. Recommendations: Risk factor reduction. Repeat study in 1 year. echo- pending orthostatic VS (4) Diabetes Current Visit: Yes Status: Acute Assessment and plan: diabetes is poorly controlled in the past, recent hospitalization patient BG was >600. - hold home Rx - medium SSI - levemir 40 BID Qualifiers: Diabetes mellitus type: type 2 Diabetes mellitus correction insulin use: with terminal clerk use Diabetes mellitus complication status: without complication Qualified Code(s): E11.9 - Type 2 diabetes mellitus without complications; Z79.4 - intermodal dispatcher (current) use of insulin (5) Hypertension Current Visit: Yes Status: Acute Assessment and plan: continue home rx Qualifiers: Hypertension type: essential hypertension Qualified Code(s): I10 - Essential (primary) hypertension (6) Vasculitis Current Visit: Yes Status: Acute Assessment and plan: currently followed by [facility]. Patient has had vessels in feet biopsied and confirmed Vasculitis. Patient has 1 month history of petechiae in lower extremities that is improving (7) UTI (urinary tract infection) Current Visit: Yes Status: Acute Assessment and plan: U/A in ed mildly suggestive of UTI, leuks small and nitrite negative. No leukocytosis and vitals stable no urinary complaints. cont macrobid. Qualifiers: Urinary tract infection type: acute cystitis Hematuria presence: without hematuria Qualified Code(s): N30.00 - Acute cystitis without hematuria (8) DVT prophylaxis Current Visit: Yes Status: Acute Assessment and plan: SQ heparin - Time Spent With Patient Total time spent is greater than 50% in coordination of care (as documented) at patient's floor/unit and/or counseling patient: - Subjective Interval history: This patient is new to me I did review medical records. Presently complains of left leg pain. Denies any CP or sob - Constitutional Vitals: Temp Pulse Resp BP Pulse Ox 97.9 F 75 17 148/75 96 09/04/17 11:14 09/04/17 11:14 09/04/17 11:14 09/04/17 11:14 09/04/17 11:14 General appearance: Present: cooperative, A&O X 3, no acute distress, answers questions appropriately - Head Head exam: Present: atraumatic, normocephalic - Eye Eye exam: Present: PERRL, conjuntiva pink, sclera anicteric Pupils: Present: PERRL - Neck Neck exam general surgery: Present: supple, trachea midline. Absent: lymphadenopathy - Respiratory Respiratory exam: Present: CTAB. Absent: accessory muscle use, rales, rhonchi, wheezes - Cardiovascular Cardiovascular exam: Present: RRR, +S1, +S2. Absent: diastolic murmur, gallop, rubs, systolic murmur - GI/Abdominal GI/Abdominal exam: Present: normal bowel sounds, soft, no peritoneal signs. Absent: distended, tenderness - Extremities Exam Extremities exam: Present: warm, radial pulses palpable and symmetrical. Absent : calf tenderness, cyanotic, pedal edema - Neurological Exam Neurological exam: Present: CN II-XII intact, oriented X3, no focal deficits. Absent: pronater drift, facial droop, speech deficit - Skin Skin exam: Present: dry, intact Internal Medicine: Result - Labs CBC & Chem 7: 09/04/17 03:23 09/04/17 03:23 Labs: Short CBC 09/04/17 Range/Units 03:23 WBC 9.6 (4.3-11.1) K/mcL Hgb 11.8 (11.5-15.4) g/dL Hct 36.3 (35.3-44.9) % Plt Count 199 (140-400) K/mcL Neutrophils # 6.4 (1.6-8.9) K/mcL BMP 09/04/17 03:23 Sodium 139 Potassium 3.8 Chloride 108 H Carbon Dioxide 22 L BUN 16 Creatinine 0.74 Glucose 210 H Calcium 9.0 Cardiac Enzymes 09/03/17 09/04/17 Range/Units 21:19 03:23 Troponin I < 0.03 < 0.03 (< 0.04) ng/mL Liver Function 09/04/17 Range/Units 03:23 Total Bilirubin 0.5 (0.3-1.0) mg/dL AST 11 L (13-39) Units/L ALT 9 (7-52) Units/L Alkaline Phosphatase 101 (34-104) Units/L Albumin 3.8 (3.5-5.7) g/dL - ABG Interpretation ABG results: PT/INR, D-dimer D-Dimer 1424 ng/mLFEU (0-500) H 09/03/17 16:41 Consult Discharge Plan - Plan Referrals: Norberto Henriquez MD [Primary Care Provider] -
--- NOTE | 2017-09-04 20:28 | Electrocardiograph Report ---
[place] [id number] Test Date: 2017-09-03 Pat Name: Cony Sampson Department: 102 Room: 3B22 Gender: F Habilitation Training Specialist: Leana : 1955 Requested By: Franck Jung Order Number: [id number] Reading MD: Hany Handley Measurements Intervals [place] Rate: 81 P: 36 MT: 159 QRS: 11 QRSD: 75 T: 41 QT: 372 QTc: 409 Interpretive Statements SINUS RHYTHM Electronically Signed On 09-04-2017 20:26:38 EDT by Hany Handley
[2017-09-04] MEDS: traZODone 50 MG TABLET PO SCH (21:15)
--- NOTE | 2017-09-04 21:31 | Orthopedic Consult Note ---
Date of Encounter: 09/04/17 Time of Encounter: 21:28 History of Present Illness Chief complaint: Right ankle pain HPI: Ms. Sampson is a 62 year old female who sustained an injury to her right ankle when she had a syncopal event. She is unsure of the mechanism but had right ankle and left shoulder pain. She was ultimately brought to the emergency room where x-rays taken revealed evidence of a right ankle fracture. She is admitted for further evaluation and management per Luis Angel of her syncopal episode. The patient is complaining of some heel pain and the sensation of a very tight splint. Denies any neurovascular complaints this time. Reviewed the patient's past medical surgical and other histories and reviewed the patient's history and physical exam is completed on the current medical record. Pertinent orthopedic examination reveals a pleasant 62-year-old woman in mild distress while lying in hospital bed. She is in a short leg posterior splint. The splint wrap is quite tight. I removed the Arcenio wraps and rewrapped her loosely with resolution of most of her complaints. I reviewed x-rays of the right ankle. These reveal an intact ankle mortise. There is a nondisplaced fracture of the distal fibula above the level of the ankle mortise. This is in essence a distal fibular shaft fracture. Impression: Nondisplaced fracture right distal fibula Recommendation: This fracture does not require surgical intervention. Would continue with the splint for probably 10 days or 2 weeks and then convert her to a boot walker though she needs to maintain nonweightbearing. I discussed this at length with the patient. She understands and agrees with the care as outlined. We will follow her as needed while hospitalized and then will need follow-up with me in the office in about 2 weeks' time. Thank you very much for allowing me to seen care for Mrs. Sampson. Sincerely, Rinku Ivan,DO Past Med Surg Social Fam HX - Past Medical History Medical history: diabetes, hyperlipidemia, hypertension Psychiatric history: depression - Past Surgical History Surgical History: hysterectomy, thyroidectomy - Social History Smoking Status: Never smoker Smokeless Tobacco Status: No Alcohol use: none Drug use: none - Family History Father Living Status: Age at : 60 Cause of : Bone Hx Family Cardiac Disorders: Yes (HTN) Hx Family Respiratory Disorders: No Hx Family Cancer: Yes (Bone) Hx Family GI Disorders: No Hx Family Genitourinary Disorders: No Hx Family Endocrine Disorder: Yes (DM) Hx Family Musculoskeletal Disorders: No Hx Family Neuromuscular Disorders: No Hx Family Neurologic Disorders: No Hx Family HEENT Disorders: No Hx Family Autoimmune Disorders: No Hx Family Reproductive Disorders: No Hx Family Psychosocial Disorders: No Hx Family Medical Disorders: No Brother Hx Family Cardiac Disorders: Yes (HTN) Hx Family Respiratory Disorders: No Hx Family Cancer: No Hx Family GI Disorders: No Hx Family Genitourinary Disorders: No Hx Family Endocrine Disorder: Yes (DM) Hx Family Musculoskeletal Disorders: No Hx Family Neuromuscular Disorders: No Hx Family Neurologic Disorders: No Hx Family HEENT Disorders: No Hx Family Autoimmune Disorders: No Hx Family Reproductive Disorders: No Hx Family Psychosocial Disorders: No Hx Family Medical Disorders: No Medications and Allergies Atorvastatin [Lipitor] 40 mg PO HS 06/09/17 [History] Cyclobenzaprine [Flexeril] 10 mg PO HS 06/09/17 [History] Insulin Glargine [Lantus] 40 unit SQ QPM 06/09/17 [History] Insulin Glargine [Lantus] 60 unit SQ QAM 06/09/17 [History] Insulin LISPRO [Humalog Kwikpen U-100] 15 - 30 unit SQ TID 06/09/17 [History] Levothyroxine [Synthroid] 75 mcg PO 0630 06/09/17 [History] Meloxicam [Mobic] 7.5 mg PO DAILY 06/09/17 [History] Sertraline [Zoloft] 100 mg PO DAILY 06/09/17 [History] Calcium Carbonate [Calci-Mix] 500 mg PO DAILY 09/02/17 [History] Gabapentin [Neurontin] 100 mg PO TID 09/02/17 [History] Lisinopril [Zestril] 40 mg PO DAILY 09/02/17 [History] metFORMIN [Glucophage] 1,000 mg PO 0800 09/02/17 [History] Alendronate Sodium [Fosamax] 70 mg PO QWEEK 09/03/17 [History] 3 Allergy/AdvReac Type Severity Reaction Status Date / Time sulfamethoxazole Allergy Gastrointestinal Verified 09/02/17 11:16 [From Bactrim] Upset trimethoprim [From Bactrim] Allergy Gastrointestinal Verified 09/02/17 11:16 Upset All Systems Reviewed: The remainder of the systems were reviewed and are negative Physical Exam - Constitutional Vitals: Temp Pulse Resp BP Pulse Ox 99.6 F 87 16 145/76 92 09/04/17 20:28 09/04/17 20:28 09/04/17 20:28 09/04/17 20:28 09/04/17 20:28 Results - Labs Result Diagrams: 09/04/17 03:23 09/04/17 03:23 Labs: Abnormal lab results MCH 27.9 pg (28.0-33.3) L 09/04/17 03:23 RDW 14.8 % (11.5-14.5) H 09/04/17 03:23 Nucleated RBCs/100 WBC 0.2 /100 WBC (0) H 09/04/17 03:23 D-Dimer 1424 ng/mLFEU (0-500) H 09/03/17 16:41 Chloride 108 mEq/L (98-107) H 09/04/17 03:23 Carbon Dioxide 22 mEq/L (23-29) L 09/04/17 03:23 Glucose 210 mg/dL (70-105) H 09/04/17 03:23 POC Glucose 158 mg/dL (70-99) H 09/04/17 20:50 AST 11 Units/L (13-39) L 09/04/17 03:23 Urine Clarity Cloudy (Clear) A 09/03/17 17:26 Ur Specific [place] > 1.030 (1.010-1.025) H 09/03/17 17:26 Urine Glucose (UA) >=1000 mg/dL (Normal) H 09/03/17 17:26 Urine Blood Small (Negative) H 09/03/17 17:26 Ur Leukocyte Esterase Small (Negative) H 09/03/17 17:26 Urine Microscopic RBC 15-30 per hpf (0-3) H 09/03/17 17:26 Urine Microscopic WBC 30-50 per hpf (0-3) H 09/03/17 17:26 Ur Squamous Epith Cells Many per lpf (None-Few) H 09/03/17 17:26 Urine Bacteria Moderate per hpf (None-Few) H 09/03/17 17:26 Ur Culture Indicated? NO. (NO) A 09/03/17 17:26 H & H 05/23/18 Range/Units 03:23 Hgb 11.8 (11.5-15.4) g/dL Hct 36.3 (35.3-44.9) % All other labs normal. - Diagnostic results Shoulder x-ray: image reviewed Ankle/Foot x-ray: image reviewed Consult Discharge Plan - Plan Referrals: Norberto Henriquez MD [Primary Care Provider] -
[2017-09-05] MEDS: *HR* Heparin 5,000 UNIT/ML VIAL SQ SCH (05:32)
[2017-09-05] MEDS: Acetaminophen 325 MG TABLET PO PRN (05:39)
[2017-09-05] MEDS: Insulin LISPRO 300 UNITS/3 ML VIAL SQ SCH ×2 (08:07→12:55)
[2017-09-05 08:16] LABS: Basophils # 0.1 K/mcL (0.0-0.2); Basophils % 0.6 %; Eosinophils # 0.3 K/mcL (0.0-0.6); Eosinophils % 3.5 %; Hematocrit 35.9 % (35.3-44.9); Hemoglobin 11.3 g/dL (11.5-15.4); Immature Granulocytes % 0.3 % (0-4); Lymphocytes # 2.7 K/mcL (0.6-4.6); Lymphocytes % 35.1 %; Mean Corpuscular HGB Conc 31.5 g/dL (31.6-35.5); Mean Corpuscular Hemoglobin 26.6 pg (28.0-33.3); Mean Corpuscular Volume 84.5 fL (83.0-100.0); Monocytes # 0.5 K/mcL (0.0-1.3); Monocytes % 6.9 %; Neutrophils # 4.1 K/mcL (1.6-8.9); Platelet Count 205 K/mcL (140-400); Red Blood Count 4.25 M/mcL (3.82-4.97); Red Cell Distribution Width 14.6 % (11.5-14.5); Segmented Neutrophils % 53.6 %
[2017-09-05] MEDS: Insulin DETEMIR 100 UNIT/ML X5UNITS SQ SCH (09:26)
[2017-09-05] MEDS: Lisinopril 20 MG TABLET PO SCH (09:33)
[2017-09-05] MEDS: Gabapentin 100 MG CAPSULE PO SCH ×2 (09:34→16:12)
[2017-09-05] MEDS: Nitrofurantoin (BID) 100 MG CAPSULE PO SCH ×2 (09:34→16:12)
[2017-09-05 09:59] LABS: BUN/Creatinine Ratio 18 (6-26); Blood Urea Nitrogen 13 mg/dL (8-23); Calcium 9.3 mg/dL (8.6-10.3); Carbon Dioxide 27 mEq/L (23-29); Chloride 109 mEq/L (98-107); Glucose 64 mg/dL (70-105); Osmolality,Calculated 294 (280-300); Potassium 3.3 mEq/L (3.5-5.1); Sodium 143 mEq/L (136-145); eGFR For African Americans > 60 (> 60); eGFR For Non-African Americans > 60 (> 60)
[2017-09-05] MEDS ORDERED: *HR* HYDROcodone/Acet 5/325 mg TABLET PO PRN (10:15)
[2017-09-05] MEDS ORDERED: Ibuprofen 400 MG TABLET PO PRN (10:16)
[2017-09-05 15:04] VITALS: BP 123/71
--- NOTE | 2017-09-05 16:33 | Discharge Summary ---
- NOTES TO OUTPATIENT PROVIDER Notes to Outpatient Provider: Patient is to follow up with orthopedics. carotid duplex. The right internal carotid artery has a 40-59% stenosis. The left internal carotid artery has a 40-59% stenosis. Recommendations: Risk factor reduction. Repeat study in 1 year. Date of Encounter: 09/05/17 Time of Encounter: 16:30 - Discharge Diagnosis (1) Dehydration Priority: Primary Status: Acute (2) Fracture of distal fibula Priority: Primary Status: Acute Qualifiers: Encounter type: initial encounter Fracture type: closed Fracture morphology: other fracture Laterality: right Qualified Code(s): S82.831A - Other fracture of upper and lower end of right fibula, initial encounter for closed fracture (3) Syncope and collapse Priority: Primary Status: Acute (4) Diabetes Priority: Secondary Status: Acute Qualifiers: Diabetes mellitus type: type 2 Diabetes mellitus terminal worker insulin use: with terminal worker use Diabetes mellitus complication status: without complication Qualified Code(s): E11.9 - Type 2 diabetes mellitus without complications; Z79.4 - terminal worker (current) use of insulin (5) Hypertension Priority: Secondary Status: Acute Qualifiers: Hypertension type: essential hypertension Qualified Code(s): I10 - Essential (primary) hypertension (6) Vasculitis Priority: Secondary Status: Acute (7) UTI (urinary tract infection) Priority: Secondary Status: Suspected Qualifiers: Urinary tract infection type: acute cystitis Hematuria presence: without hematuria Qualified Code(s): N30.00 - Acute cystitis without hematuria Hospital course: Ms. Sampson is a 62 year old female PMH of vaculitis seen at [facility] HTN DM presented to the ED after losing consciousness on Saturday and experiencing a fall. The patient was working outside in the yard around 4 pm Saturday for approox an hour she felt woozy vomited and then lost consciousness. She fell to the ground injuring her shoulder and R leg. She amits that she did not have much to drink that day. She wnet along the rest of the day without any issue. The next morning she is unable to bear weight on her R leg. She presented to the ED with complaints pain in leg. She was found to have a nondisplaced fracture right distal fibula . SHe was given IVF and worked up for syncope. Echo with EF 65% mild diastolic dysfunction mild tricuspid regugitation borderline pulmonary HTN Cartoid duplex The right internal carotid artery has a 40-59% stenosis.The left internal cartoid artery has 40-59% stenosis Recommendation risk factor reduction Repeat study in 1 yr CTA negative for PE CT of head negative for acute intracranial abnormality venous duplex negative for DVT CT of abd no acute findings orthostatic vital signs negative. Suspect syncope episode rt dehydration/ vasovagal. Ortho recommend non weight bearing and follow up in office in 2 weeks. Advised patient of follow up anointments, to maintain hydrated change position slowly. Remain non weight bearing she prescription for walker. She was given norco for pain . I answered her questions she is hemodynamically stable and ready for discharge Discharge discussed with: patient - Time Spent with Patient Total time spent providing and/or coordinating discharge services: - Discharge Medications Prescriptions: HYDROcodone/Acet 5/325 mg [[place] 5-325 mg] 1 tab PO Q6HR PRN 5 Days #20 tablet PRN Reason: Moderate Pain Home Medications: Atorvastatin [Lipitor] 40 mg PO HS 06/09/17 [History] Cyclobenzaprine [Flexeril] 10 mg PO HS 06/09/17 [History] Insulin Glargine [Lantus] 40 unit SQ QPM 06/09/17 [History] Insulin Glargine [Lantus] 60 unit SQ QAM 06/09/17 [History] Insulin LISPRO [Humalog Kwikpen U-100] 15 - 30 unit SQ TID 06/09/17 [History] Levothyroxine [Synthroid] 75 mcg PO 0630 06/09/17 [History] Meloxicam [Mobic] 7.5 mg PO DAILY 06/09/17 [History] Sertraline [Zoloft] 100 mg PO DAILY 06/09/17 [History] Calcium Carbonate [Calci-Mix] 500 mg PO DAILY 09/02/17 [History] Gabapentin [Neurontin] 100 mg PO TID 09/02/17 [History] Lisinopril [Zestril] 40 mg PO DAILY 09/02/17 [History] metFORMIN [Glucophage] 1,000 mg PO 0800 09/02/17 [History] Alendronate Sodium [Fosamax] 70 mg PO QWEEK 09/03/17 [History] HYDROcodone/Acet 5/325 mg [[place] 5-325 mg] 1 tab PO Q6HR PRN 5 Days #20 tablet 09/05/17 [Rx] Allergies/Adverse Reactions: 3 Allergy/AdvReac Type Severity Reaction Status Date / Time sulfamethoxazole Allergy Gastrointestinal Verified 09/02/17 11:16 [From Bactrim] Upset trimethoprim [From Bactrim] Allergy Gastrointestinal Verified 09/02/17 11:16 Upset Date of admission: 09/03/17 20:13 Primary care physician: Norberto Henriquez Consults: 09/05/17 06:53 Consult to Invoice Clerk [CONS] Routine Reason for SW Consult: Patient is non weight bearing x6 wks per orther and will likely need a walker/ scooter and BSC Discharging clinician: Ivonne Tay Anticipated date of discharge: 09/05/17 - Constitutional Vitals: Temp Pulse Resp BP Pulse Ox 98.1 F 81 15 123/71 92 09/05/17 15:03 09/05/17 15:03 09/05/17 15:03 09/05/17 15:03 09/05/17 15:03 General appearance: Present: cooperative, A&O X 3, no acute distress, answers questions appropriately - Head Head exam: Present: atraumatic, normocephalic - Eye Eye exam: Present: PERRL, conjuntiva pink, sclera anicteric Pupils: Present: PERRL - Neck Neck exam general surgery: Present: supple, trachea midline. Absent: lymphadenopathy - Respiratory Respiratory exam: Present: CTAB. Absent: accessory muscle use, rales, rhonchi, wheezes - Cardiovascular Cardiovascular exam: Present: RRR, +S1, +S2. Absent: diastolic murmur, gallop, rubs, systolic murmur - GI/Abdominal GI/Abdominal exam: Present: normal bowel sounds, soft, no peritoneal signs. Absent: distended, tenderness - Extremities Exam Extremities exam: Present: warm, radial pulses palpable and symmetrical. Absent : calf tenderness, cyanotic, pedal edema - Neurological Exam Neurological exam: Present: CN II-XII intact, oriented X3, no focal deficits. Absent: pronater drift, facial droop, speech deficit - Skin Skin exam: Present: dry, intact - Patient Status Disposition: Home, Self-Care Condition: Good Functional capacity at discharge: uses cane/walker Overall status at discharge: patient is progressing back to baseline - Discharge Instructions Follow Up With: Norberto Henriquez MD [Primary Care Provider] - 09/12/17 10:00 am Rinku Ivan DO [Non-Partnered Physician] - - Diet and Activity Activity: other Diet: advance to your usual diet
== END 2017-09-05 17:30 | disposition home or self-care (01) ==
LOC: 3BNU 16:15 → EMEROO 16:15 → 3BNU 21:45
PROVIDERS: ADMIT Internal Medicine; ATTEND Internal Medicine

== ENCOUNTER 2018-10-25 09:13 | Observation (INO) ==
[2018-10-25] MEDS ORDERED: Insulin Regular, Human 100 UNIT/ML IV PRN (09:29)
--- NOTE | 2018-10-25 09:38 | Emergency Department Note ---
Disposition Clinical Impression: Dehydration DKA (diabetic ketoacidoses) Qualifiers: Diabetes mellitus type: type 1 Diabetes mellitus complication detail: without coma Qualified Code(s): E10.10 - Type 1 diabetes mellitus with ketoacidosis with out coma Nausea & vomiting Qualifiers: Vomiting type: unspecified Vomiting Intractability: non-intractable Qualified Code(s): R11.2 - Nausea with vomiting, unspecified Disposition: Admitted As Inpatient Condition: Fair Time of Disposition: 11:25 Weakness HPI - General Chief complaint: ED Weakness Stated complaint: weakness Time Seen by Provider: 10/25/18 09:14 Source: EMS Mode of arrival: EMS Limitations: no limitations Nursing Notes Reviewed: Yes Vital Signs Reviewed: Yes - History of Present Illness HPI Narrative: Patient returns to the ED for evaluation of nausea, vomiting, high blood sugar, anorexia, generalized fatigue and weakness. She was seen here Saturday for the same and was offered admission but declined. She denies pain anywhere at this time. She also denies fever, chills, diarrhea, dysuria, cough or rash. She has residual right sided weakness from a stroke earlier this year but denies any worsening of this weakness, just states that she is generally very tired and "weak all over:. Pt Subjective Complaint: generalized weakness/fatigue Onset (ago): week(s) Duration: constant Location: generalized Migration: none Pain Severity: none Pain Scale: 0 Improves with: none Worsens with: none Context: other Associated symptoms: Reports: other (anorexia, malaise, generalized weakness) - Related Data Home Medications Medication Instructions Recorded Confirmed Atorvastatin [Lipitor] 40 mg PO HS 06/09/17 10/25/18 Insulin Glargine [Lantus] 40 unit SQ HS 06/09/17 10/25/18 Insulin LISPRO [Humalog Kwikpen 0 unit SQ [facility] 06/09/17 10/25/18 U-100] Levothyroxine [Synthroid] 75 mcg PO 0630 06/09/17 10/25/18 Meloxicam [Mobic] 7.5 mg PO DAILY 06/09/17 10/25/18 Sertraline [Zoloft] 100 mg PO DAILY 06/09/17 10/25/18 Cyclobenzaprine [Flexeril] 10 mg PO HS 05/23/18 10/25/18 Dulaglutide [Trulicity] 1.5 mg SQ 05/23/18 10/25/18 Empagliflozin [Jardiance] 10 mg PO DAILY 05/23/18 10/25/18 GlipiZIDE [Glipizide Xl] 5 mg PO DAILY 05/23/18 10/25/18 Lisinopril [Zestril] 20 mg PO DAILY 05/23/18 10/25/18 Metformin HCl 1,000 mg PO QAM 05/23/18 10/25/18 Calcium Carbonate [Calcium] 500 mg PO DAILY 10/25/18 10/25/18 Allergies Allergy/AdvReac Type Severity Reaction Status Date / Time sulfamethoxazole Allergy Gastrointestinal Verified 10/25/18 10:03 [From Bactrim] Upset trimethoprim [From Bactrim] Allergy Gastrointestinal Verified 10/25/18 10:03 Upset All systems ED: reviewed and negative except as stated. Review of Systems: As Per HPI Constitutional: Reports: as per HPI, weakness, weight change (Decreased). Denies: fever, chills, night sweats Eyes: Denies: vision change ENT ED: Denies: ear pain, throat pain, congestion, dysphagia Cardiovascular: Denies: chest pain, palpitations, dyspnea on exertion, orthopnea, edema, syncope Respiratory: Denies: cough, dyspnea, wheezes Gastrointestinal: Reports: nausea, vomiting (Improved. No vomiting since last night). Denies: abdominal pain, diarrhea, constipation, hematemesis, melena, h ematochezia Genitourinary: Denies: urgency, dysuria, frequency, hematuria, discharge Musculoskeletal: Denies: back pain, neck pain, joint swelling, arthralgia, myalgia Integumentary: Denies: rash, lesions Neurological: Reports: as per HPI, weakness. Denies: headache, numbness, paresthesias, confusion, vertigo Endocrine: Reports: fatigue Hematological/Lymphatic: Denies: easy bleeding, easy bruising, lymphadenopathy Past Medical History - Past Medical History Attestation: Yes The following information was validated with the patient. Source: patient Medical history: Reports: CVA (Hemorrhagic, September of this year), diabetes, hypert ension, other Surgical history: Reports: hysterectomy, thyroidectomy Psychiatric history: Reports: no psych history DELIVERY CREW MEMBER history: Reports: no DELIVERY CREW MEMBER history - Social History Smoking Status: Never smoker Smokeless Tobacco Status: No Alcohol use: Reports: none Drug use: Reports: none Physical Exam - General Limitations: no limitations General appearance: alert, in no apparent distress - Head Head exam: atraumatic, normocephalic, normal inspection - Eye Eye exam: Present: normal appearance. Absent: scleral icterus, conjunctival injection, periorbital swelling - ENT ENT exam: mucous membranes moist, mucous membranes dry - Neck Neck exam: Present: normal inspection, trachea midline. Absent: meningismus, lymphadenopathy - Chest Chest inspection: Present: other (Loop recorder upper chest. No signs of infection). Absent: tenderness - Respiratory Respiratory exam: Present: normal lung sounds bilaterally. Absent: respiratory distress, wheezes, stridor, accessory muscle use - Cardiovascular Cardiovascular exam: Present: normal rhythm, tachycardia, systolic murmur - Abdominal Exam Abdominal exam: Present: soft, Non-Tender. Absent: distention, guarding, rebound, rigidity, ascites, mass, pulsatile mass - Extremities Exam Extremities exam: Present: normal inspection. Absent: pedal edema - Neurological Exam Neurological exam: Present: alert, oriented X3, CN II-XII intact - Psychiatric Psychiatric exam: Present: normal affect, normal mood - Skin Skin exam: Present: warm, dry, intact, normal color Course Course Narrative: Patient with history of insulin dependent diabetes, and hemorrhagic stroke this past June, presents for evaluation of continued nausea, vomiting and elevated blood sugar. She does not have an insulin pump and states that her glucose is usually pretty well controlled. She denies pain, fever, chills, diarrhea, constipation, dysuria, hematuria, vaginal discharge, abdominal pain, pelvic pain, chest pain, shortness of breath, cough, dyspnea, rash, joint pain or recent travel. She has had decreased appetite second to nausea. She has had no hematemesis or melena. She was seen here on the for the same complaint and was offered admission but declined. She states that she has been in the hospital so much this year. She just did not want to have to stay again. Labs, meds, fluids ordered. Labs show DKA. No infectious process identified. She states that she has been taking her insulin. Case discussed with Dr. Tobar. He has had face to face time with the patient and agrees with the assessment and plan. He has added a CXR to be complete. Patient denies cough, dyspnea, GARETH, chest pain, fever. Hospitalist has accepted patient for admission and is aware of pending CXR and U/A. - Reevaluation(s) Reevaluation #1: Patient resting with no complaints. Nausea is better. Still no pain. Unable to urinate yet, but is requesting not to be cath'd. Patient will require admission. Do not believe she has urinary retention. She is most likely just very dry. Time: 11:07 Vital Signs Temperature 97.5 F L 10/25/18 09:19 Pulse Rate 106 10/25/18 09:19 Respiratory Rate 18 10/25/18 09:19 Blood Pressure 182/84 10/25/18 09:19 O2 Sat by Pulse Oximetry 100 10/25/18 09:19 Temperature 97.9 F 10/25/18 16:19 Pulse Rate 91 10/25/18 16:19 Respiratory Rate 12 10/25/18 16:19 Blood Pressure 183/84 10/25/18 16:19 O2 Sat by Pulse Oximetry 97 10/25/18 16:19 Oxygen Delivery Oxygen Delivery Room Air Weakness - Lab Data Result diagrams: 10/25/18 10:35 10/25/18 17:24 Lab Results 10/25/18 10/25/18 10/25/18 Range/Units 10:35 10:35 10:35 WBC 7.8 (4.3-11.1) K/mcL RBC 4.56 (3.82-4.97) M/mcL Hgb 12.1 (11.5-15.4) g/dL Hct 37.3 (35.3-44.9) % MCV 81.8 L (83.0-100.0) fL MCH 26.5 L (28.0-33.3) pg MCHC 32.4 (31.6-35.5) g/dL RDW 14.6 H (11.5-14.5) % Plt Count 150 (140-400) K/mcL MPV 10.8 (9.4-12.4) fL Immature Gran % 0.3 (0-4) % Seg Neutrophils % 78.8 % Lymphocytes % 12.8 % Monocytes % 6.6 % Eosinophils % 1.0 % Basophils % 0.5 % Neutrophils # 6.1 (1.6-8.9) K/mcL Lymphocytes # 1.0 (0.6-4.6) K/mcL Monocytes # 0.5 (0.0-1.3) K/mcL Eosinophils # 0.1 (0.0-0.6) K/mcL Basophils # 0.0 (0.0-0.2) K/mcL VBG pH (7.32-7.42) pH Units VBG pCO2 (41-51) mmHg VBG pO2 (25-50) mmHg VBG HCO3 (21-27) mEq/L Sodium 138 (136-145) mEq/L Potassium 3.1 L (3.5-5.1) mEq/L Chloride 107 (98-107) mEq/L Carbon Dioxide 15 L (23-29) mEq/L BUN 9 (8-23) mg/dL Creatinine 0.84 (0.60-1.20) mg/dL Est GFR ( Amer) > 60 (> 60) Est GFR (Non-Af Amer) > 60 (> 60) BUN/Creatinine Ratio 11 (6-26) Glucose 340 H (70-105) mg/dL POC Glucose (70-99) mg/dL Calculated Osmolality 298 (280-300) Calcium 9.1 (8.6-10.3) mg/dL Magnesium 1.6 (1.6-2.6) mg/dL Total Bilirubin 0.6 (0.3-1.0) mg/dL AST 8 L (13-39) Units/L ALT 6 L (7-52) Units/L Alkaline Phosphatase 103 (34-104) Units/L Serum Total Protein 6.5 (6.4-8.9) g/dL Albumin 3.6 (3.5-5.7) g/dL Globulin 2.9 (2.4-3.5) g/dL Albumin/Globulin Ratio 1.2 (1.1-2.2) Beta-Hydroxybutyric Acd > 2.00 H (0.02-0.27) mmol/L Urine Color (Yellow) Urine Clarity (Clear) Urine pH (5.0-8.0) pH Units Ur Specific [place] (1.010-1.025) Urine Protein (Neg-Trace) mg/dL Urine Glucose (UA) (Normal) mg/dL Urine Ketones (Negative) mg/dL Urine Blood (Negative) Urine Nitrite (Negative) Urine Bilirubin (Negative) Urine Urobilinogen (Normal) mg/dL Ur Leukocyte Esterase (Negative) Urine Microscopic RBC (0-3) per hpf Urine Microscopic WBC (0-3) per hpf Ur Squamous Epith Cells (None-Few) per lpf Urine Bacteria (None-Few) per hpf Hyaline Casts (None-Few) per lpf Ur Culture Indicated? (NO) 10/25/18 10/25/18 10/25/18 Range/Units 10:45 10:53 11:59 WBC (4.3-11.1) K/mcL RBC (3.82-4.97) M/mcL Hgb (11.5-15.4) g/dL Hct (35.3-44.9) % MCV (83.0-100.0) fL MCH (28.0-33.3) pg MCHC (31.6-35.5) g/dL RDW (11.5-14.5) % Plt Count (140-400) K/mcL MPV (9.4-12.4) fL Immature Gran % (0-4) % Seg Neutrophils % % Lymphocytes % % Monocytes % % Eosinophils % % Basophils % % Neutrophils # (1.6-8.9) K/mcL Lymphocytes # (0.6-4.6) K/mcL Monocytes # (0.0-1.3) K/mcL Eosinophils # (0.0-0.6) K/mcL Basophils # (0.0-0.2) K/mcL VBG pH 7.30 L (7.32-7.42) pH Units VBG pCO2 28 L (41-51) mmHg VBG pO2 80 H (25-50) mmHg VBG HCO3 14 L (21-27) mEq/L Sodium (136-145) mEq/L Potassium (3.5-5.1) mEq/L Chloride (98-107) mEq/L Carbon Dioxide (23-29) mEq/L BUN (8-23) mg/dL Creatinine (0.60-1.20) mg/dL Est GFR ( Amer) (> 60) Est GFR (Non-Af Amer) (> 60) BUN/Creatinine Ratio (6-26) Glucose (70-105) mg/dL POC Glucose 314 H (70-99) mg/dL Calculated Osmolality (280-300) Calcium (8.6-10.3) mg/dL Magnesium (1.6-2.6) mg/dL Total Bilirubin (0.3-1.0) mg/dL AST (13-39) Units/L ALT (7-52) Units/L Alkaline Phosphatase (34-104) Units/L Serum Total Protein (6.4-8.9) g/dL Albumin (3.5-5.7) g/dL Globulin (2.4-3.5) g/dL Albumin/Globulin Ratio (1.1-2.2) Beta-Hydroxybutyric Acd (0.02-0.27) mmol/L Urine Color Yellow (Yellow) Urine Clarity Clear (Clear) Urine pH 6.0 (5.0-8.0) pH Units Ur Specific [place] 1.019 (1.010-1.025) Urine Protein 30 H (Neg-Trace) mg/dL Urine Glucose (UA) >=1000 H (Normal) mg/dL Urine Ketones 80 H (Negative) mg/dL Urine Blood Moderate H (Negative) Urine Nitrite Negative (Negative) Urine Bilirubin Negative (Negative) Urine Urobilinogen Normal (Normal) mg/dL Ur Leukocyte Esterase Negative (Negative) Urine Microscopic RBC 5-15 H (0-3) per hpf Urine Microscopic WBC 5-15 H (0-3) per hpf Ur Squamous Epith Cells Many H (None-Few) per lpf Urine Bacteria None Seen (None-Few) per hpf Hyaline Casts None Seen (None-Few) per lpf Ur Culture Indicated? YES A (NO) Attestation Statement - Attestation Attestation: I, Mata Tobar DO have provided [id number] time during the care of this patient. Detailed review the presentation, symptoms, medical history were discussed and reviewed with the advanced practice provider Jaimie Hoang PA-C/BAG ADJUSTER. Medical intervention labs and imaging studies were reviewed in detail. See full documentation of physical exam and course of care in the advanced practice provider's note. I agree with the determined course of care, medical intervention and disposition put forth by the advanced practice provider. See below documentation for changes or alterations in documentation.
[2018-10-25] MEDS: 0.9 % Sodium Chloride 1,000 ML IVC SCH ×2 (09:59→10:53)
[2018-10-25 10:54] LABS: Basophils % 0.5 %; Eosinophils # 0.1 K/mcL (0.0-0.6); Hematocrit 37.3 % (35.3-44.9); Hemoglobin 12.1 g/dL (11.5-15.4); Immature Granulocytes % 0.3 % (0-4); Lymphocytes % 12.8 %; Mean Corpuscular HGB Conc 32.4 g/dL (31.6-35.5); Mean Corpuscular Hemoglobin 26.5 pg (28.0-33.3); Mean Corpuscular Volume 81.8 fL (83.0-100.0); Mean Platelet Volume 10.8 fL (9.4-12.4); Monocytes # 0.5 K/mcL (0.0-1.3); Monocytes % 6.6 %; Neutrophils # 6.1 K/mcL (1.6-8.9); Platelet Count 150 K/mcL (140-400); Red Blood Count 4.56 M/mcL (3.82-4.97); Red Cell Distribution Width 14.6 % (11.5-14.5); Segmented Neutrophils % 78.8 %; White Blood Count 7.8 K/mcL (4.3-11.1)
[2018-10-25 10:59] LABS: VBG HCO3 14 mEq/L (21-27); VBG PCO2 28 mmHg (41-51); VBG PO2 80 mmHg (25-50)
[2018-10-25] MEDS ORDERED: Ondansetron 4 MG/2 ML VIAL IVP ONE (11:01)
[2018-10-25 11:19] LABS: Alanine Aminotransferase 6 Units/L (7-52); Albumin 3.6 g/dL (3.5-5.7); Albumin/Globulin Ratio 1.2 (1.1-2.2); Alkaline Phosphatase 103 Units/L (34-104); Aspartate Amino Transferase 8 Units/L (13-39); BUN/Creatinine Ratio 11 (6-26); Bilirubin,Total 0.6 mg/dL (0.3-1.0); Blood Urea Nitrogen 9 mg/dL (8-23); Calcium 9.1 mg/dL (8.6-10.3); Carbon Dioxide 15 mEq/L (23-29); Chloride 107 mEq/L (98-107); Globulin 2.9 g/dL (2.4-3.5); Glucose 340 mg/dL (70-105); Magnesium 1.6 mg/dL (1.6-2.6); Osmolality,Calculated 298 (280-300); Potassium 3.1 mEq/L (3.5-5.1); Sodium 138 mEq/L (136-145); Total Protein 6.5 g/dL (6.4-8.9); eGFR For African Americans > 60 (> 60); eGFR For Non-African Americans > 60 (> 60)
[2018-10-25] MEDS ORDERED: *HR* Dextrose 50 % in Water (Syg) 50 ML SYRINGE IVP PRN (11:25)
[2018-10-25] MEDS ORDERED: Potassium Chloride 40 MEQ, Lidocaine 1% 2 ML in D5% in Water 500 ML IVPB ONE ×2 (12:01→19:47)
[2018-10-25] MEDS ORDERED: 0.9 % Sodium Chloride 1,000 ML IVC ONE (12:03)
--- NOTE | 2018-10-25 12:12 | Emergency Department Note ---
Disposition Clinical Impression: Dehydration DKA (diabetic ketoacidoses) Qualifiers: Diabetes mellitus type: type 1 Diabetes mellitus complication detail: without coma Qualified Code(s): E10.10 - Type 1 diabetes mellitus with ketoacidosis with out coma Nausea & vomiting Qualifiers: Vomiting type: unspecified Vomiting Intractability: non-intractable Qualified Code(s): R11.2 - Nausea with vomiting, unspecified Disposition: Admitted As Inpatient Condition: Fair Referrals: Norberto Henriquez MD [Primary Care Provider] - Forms: ED Satisfaction Letter Time of Disposition: 12:52 General Adult HPI - General Chief complaint: ED Weakness Stated complaint: weakness Time Seen by Provider: 10/25/18 09:14 Source: EMS Mode of arrival: EMS Limitations: no limitations - History of Present Illness Pain Scale: 6 - Related Data Home Medications Medication Instructions Recorded Confirmed Atorvastatin [Lipitor] 40 mg PO HS 06/09/17 10/25/18 Insulin Glargine [Lantus] 40 unit SQ HS 06/09/17 10/25/18 Insulin LISPRO [Humalog Kwikpen 0 unit SQ [facility] 06/09/17 10/25/18 U-100] Levothyroxine [Synthroid] 75 mcg PO 0630 06/09/17 10/25/18 Meloxicam [Mobic] 7.5 mg PO DAILY 06/09/17 10/25/18 Sertraline [Zoloft] 100 mg PO DAILY 06/09/17 10/25/18 Cyclobenzaprine [Flexeril] 10 mg PO 05/23/18 10/25/18 Dulaglutide [Trulicity] 1.5 mg SQ 05/23/18 10/25/18 Empagliflozin [Jardiance] 10 mg PO DAILY 05/23/18 10/25/18 GlipiZIDE [Glipizide Xl] 5 mg PO DAILY 05/23/18 10/25/18 Lisinopril [Zestril] 20 mg PO DAILY 05/23/18 10/25/18 Metformin HCl 1,000 mg PO QAM 05/23/18 10/25/18 Calcium Carbonate [Calcium] 500 mg PO DAILY 10/25/18 10/25/18 Allergies Allergy/AdvReac Type Severity Reaction Status Date / Time sulfamethoxazole Allergy Gastrointestinal Verified 10/25/18 10:03 [From Bactrim] Upset trimethoprim [From Bactrim] Allergy Gastrointestinal Verified 10/25/18 10:03 Upset Constitutional: Reports: as per HPI, weakness, weight change (Decreased). Denies: fever, chills, night sweats Eyes: Denies: vision change ENT ED: Denies: ear pain, throat pain, congestion, dysphagia Cardiovascular: Denies: chest pain, palpitations, dyspnea on exertion, orthopnea, edema, syncope Respiratory: Denies: cough, dyspnea, wheezes Gastrointestinal: Reports: nausea, vomiting (Improved. No vomiting since last night). Denies: abdominal pain, diarrhea, constipation, hematemesis, melena, hematochezia Genitourinary: Denies: urgency, dysuria, frequency, hematuria, discharge Musculoskeletal: Denies: back pain, neck pain, joint swelling, arthralgia, myalgia Integumentary: Denies: rash, lesions Neurological: Reports: as per HPI, weakness. Denies: headache, numbness, paresthesias, confusion, vertigo Endocrine: Reports: fatigue Hematological/Lymphatic: Denies: easy bleeding, easy bruising, lymphadenopathy Past Medical History - Past Medical History Medical history: Reports: CVA (Hemorrhagic, September of this year), diabetes, hypertension, other Surgical history: Reports: hysterectomy, thyroidectomy Psychiatric history: Reports: no psych history HIDE INSPECTOR history: Reports: no HIDE INSPECTOR history - Social History Smoking Status: Never smoker Smokeless Tobacco Status: No Alcohol use: Reports: none Drug use: Reports: none Physical Exam - General Limitations: no limitations General appearance: alert, in no apparent distress Course Vital Signs Temperature 97.5 F L 10/25/18 09:19 Pulse Rate 106 10/25/18 09:19 Respiratory Rate 18 10/25/18 09:19 Blood Pressure 182/84 10/25/18 09:19 O2 Sat by Pulse Oximetry 100 10/25/18 09:19 Temperature 97.5 F L 10/25/18 09:25 Pulse Rate 112 10/25/18 11:55 Respiratory Rate 18 10/25/18 11:55 Blood Pressure 162/99 10/25/18 11:55 O2 Sat by Pulse Oximetry 100 10/25/18 11:55 Oxygen Delivery Oxygen Delivery Room Air Medical Decision Making - Lab Data Result diagrams: 10/25/18 10:35 10/25/18 10:35 Lab Results 10/25/18 10/25/18 10/25/18 Range/Units 10:35 10:35 10:35 WBC 7.8 (4.3-11.1) K/mcL RBC 4.56 (3.82-4.97) M/mcL Hgb 12.1 (11.5-15.4) g/dL Hct 37.3 (35.3-44.9) % MCV 81.8 L (83.0-100.0) fL MCH 26.5 L (28.0-33.3) pg MCHC 32.4 (31.6-35.5) g/dL RDW 14.6 H (11.5-14.5) % Plt Count 150 (140-400) K/mcL MPV 10.8 (9.4-12.4) fL Immature Gran % 0.3 (0-4) % Seg Neutrophils % 78.8 % Lymphocytes % 12.8 % Monocytes % 6.6 % Eosinophils % 1.0 % Basophils % 0.5 % Neutrophils # 6.1 (1.6-8.9) K/mcL Lymphocytes # 1.0 (0.6-4.6) K/mcL Monocytes # 0.5 (0.0-1.3) K/mcL Eosinophils # 0.1 (0.0-0.6) K/mcL Basophils # 0.0 (0.0-0.2) K/mcL VBG pH (7.32-7.42) pH Units VBG pCO2 (41-51) mmHg VBG pO2 (25-50) mmHg VBG HCO3 (21-27) mEq/L Sodium 138 (136-145) mEq/L Potassium 3.1 L (3.5-5.1) mEq/L Chloride 107 (98-107) mEq/L Carbon Dioxide 15 L (23-29) mEq/L BUN 9 (8-23) mg/dL Creatinine 0.84 (0.60-1.20) mg/dL Est GFR ( Amer) > 60 (> 60) Est GFR (Non-Af Amer) > 60 (> 60) BUN/Creatinine Ratio 11 (6-26) Glucose 340 H (70-105) mg/dL POC Glucose (70-99) mg/dL Calculated Osmolality 298 (280-300) Calcium 9.1 (8.6-10.3) mg/dL Magnesium 1.6 (1.6-2.6) mg/dL Total Bilirubin 0.6 (0.3-1.0) mg/dL AST 8 L (13-39) Units/L ALT 6 L (7-52) Units/L Alkaline Phosphatase 103 (34-104) Units/L Serum Total Protein 6.5 (6.4-8.9) g/dL Albumin 3.6 (3.5-5.7) g/dL Globulin 2.9 (2.4-3.5) g/dL Albumin/Globulin Ratio 1.2 (1.1-2.2) Beta-Hydroxybutyric Acd > 2.00 H (0.02-0.27) mmol/L Urine Color (Yellow) Urine Clarity (Clear) Urine pH (5.0-8.0) pH Units Ur Specific [place] (1.010-1.025) Urine Protein (Neg-Trace) mg/dL Urine Glucose (UA) (Normal) mg/dL Urine Ketones (Negative) mg/dL Urine Blood (Negative) Urine Nitrite (Negative) Urine Bilirubin (Negative) Urine Urobilinogen (Normal) mg/dL Ur Leukocyte Esterase (Negative) Urine Microscopic RBC (0-3) per hpf Urine Microscopic WBC (0-3) per hpf Ur Squamous Epith Cells (None-Few) per lpf Urine Bacteria (None-Few) per hpf Hyaline Casts (None-Few) per lpf Ur Culture Indicated? (NO) 10/25/18 10/25/18 10/25/18 Range/Units 10:45 10:53 11:59 WBC (4.3-11.1) K/mcL RBC (3.82-4.97) M/mcL Hgb (11.5-15.4) g/dL Hct (35.3-44.9) % MCV (83.0-100.0) fL MCH (28.0-33.3) pg MCHC (31.6-35.5) g/dL RDW (11.5-14.5) % Plt Count (140-400) K/mcL MPV (9.4-12.4) fL Immature Gran % (0-4) % Seg Neutrophils % % Lymphocytes % % Monocytes % % Eosinophils % % Basophils % % Neutrophils # (1.6-8.9) K/mcL Lymphocytes # (0.6-4.6) K/mcL Monocytes # (0.0-1.3) K/mcL Eosinophils # (0.0-0.6) K/mcL Basophils # (0.0-0.2) K/mcL VBG pH 7.30 L (7.32-7.42) pH Units VBG pCO2 28 L (41-51) mmHg VBG pO2 80 H (25-50) mmHg VBG HCO3 14 L (21-27) mEq/L Sodium (136-145) mEq/L Potassium (3.5-5.1) mEq/L Chloride (98-107) mEq/L Carbon Dioxide (23-29) mEq/L BUN (8-23) mg/dL Creatinine (0.60-1.20) mg/dL Est GFR ( Amer) (> 60) Est GFR (Non-Af Amer) (> 60) BUN/Creatinine Ratio (6-26) Glucose (70-105) mg/dL POC Glucose 314 H (70-99) mg/dL Calculated Osmolality (280-300) Calcium (8.6-10.3) mg/dL Magnesium (1.6-2.6) mg/dL Total Bilirubin (0.3-1.0) mg/dL AST (13-39) Units/L ALT (7-52) Units/L Alkaline Phosphatase (34-104) Units/L Serum Total Protein (6.4-8.9) g/dL Albumin (3.5-5.7) g/dL Globulin (2.4-3.5) g/dL Albumin/Globulin Ratio (1.1-2.2) Beta-Hydroxybutyric Acd (0.02-0.27) mmol/L Urine Color Yellow (Yellow) Urine Clarity Clear (Clear) Urine pH 6.0 (5.0-8.0) pH Units Ur Specific [place] 1.019 (1.010-1.025) Urine Protein 30 H (Neg-Trace) mg/dL Urine Glucose (UA) >=1000 H (Normal) mg/dL Urine Ketones 80 H (Negative) mg/dL Urine Blood Moderate H (Negative) Urine Nitrite Negative (Negative) Urine Bilirubin Negative (Negative) Urine Urobilinogen Normal (Normal) mg/dL Ur Leukocyte Esterase Negative (Negative) Urine Microscopic RBC 5-15 H (0-3) per hpf Urine Microscopic WBC 5-15 H (0-3) per hpf Ur Squamous Epith Cells Many H (None-Few) per lpf Urine Bacteria None Seen (None-Few) per hpf Hyaline Casts None Seen (None-Few) per lpf Ur Culture Indicated? YES A (NO) Critical Care Time Critical Care Time: Yes Total Critical Care Time: 45 Attestation: Critical care performed: Time is exclusive of separately billable procedures. Time includes: direct patient care, patient reassessment, coordination of patient care, interpretation of data (laboratory data, radiology data, and respiratory data), review of patient's medical records, medical consultation and documentation of patient care. Procedures included in critical care time: Procedures excluded from critical care time: Attestation Statement - Attestation Attestation: I, Mata Tobar DO have provided [id number] time during the care of this patient. Detailed review the presentation, symptoms, medical history were discussed and reviewed with the advanced practice provider Jaimie Hoang PA-C/CREDIT COLLECTION SPECIALIST. Medical intervention labs and imaging studies were reviewed in detail. See full documentation of physical exam and course of care in the advanced practice provider's note. I agree with the determined course of care, medical interventi on and disposition put forth by the advanced practice provider. See below documentation for changes or alterations in documentation. 63-year-old female presents emergency room for generalized malaise and weakness. Patient has had these symptoms for approximately one week. She was seen here previously and had workup completed that time and was discharged home. Patient had been doing okay at home for over the last 24-48 hours she felt progressively worse. Patient does have a history of a remote stroke in June of this year she is not currently on any blood thinners. She is denying any chest pain shortness of breath fevers or chills. She has not had any nausea vomiting or diarrhea. She does not have any headache or vision change. Patient is a type II diabetic. She does have hypertension and hyperlipidemia. Vital signs reviewed and are stable. Patient is otherwise clinically resting the bed at this time. Her mucous membranes are very dry her lips are cracked. Oropharynx is patent trachea is midline. Lungs are clear heart is regular abdomen is soft. Extremities otherwise normal. Skin turgor is poor. Patient has had diminished urinary output. Labs are reviewed and there is concern for diabetic ketoacidosis based on the presentation. Her potassium is 3.1. A 40 mEq by IV as well as 40 mEq by mouth been given. Patient will be started on the diabetic ketoacidosis protocol this time. The hospitalist has been paged. EKG was reviewed and documented in the advanced practice provider's note. Otherwise patient is stable. Patient will be admitted for symptomatic control management of what appears to be dehydration secondary to diabetic ketoacidosis. Chest x- ray and urinalysis are still pending. Patient does not have any new or acute neurologic changes that justify imaging of the head. She is otherwise acting appropriately and at her baseline. No other acute concerns or issues at this point. See detailed documentation the physical exam, medical intervention, medical decision-making and disposition in the advanced practice provider's docu mentation. 45 minutes of critical care provider the patient's treatment course secondary to multidisciplinary intervention and management. 1215 Patient was discussed with the hospitalist Dr. Diaz. Detailed review the presentation symptoms medical intervention and alterations in the medical care were discussed at length. Patient will be admitted for what appears to be dehydration diabetic ketoacidosis. Patient is otherwise currently stable. We will continue to monitor here until the admission process is completed.
[2018-10-25 12:16] LABS: Bilirubin,Urine Negative (Negative); Blood,Urine Moderate (Negative); Clarity,Urine Clear (Clear); Color,Urine Yellow (Yellow); Glucose,Urine (UA) >=1000 mg/dL (Normal); Ketones,Urine 80 mg/dL (Negative); Leukocyte Esterase,Urine Negative (Negative); Nitrite,Urine Negative (Negative); Protein,Urine 30 mg/dL (Neg-Trace); Specific Gravity,Urine 1.019 (1.010-1.025); Urobilinogen,Urine Normal (Normal)
[2018-10-25 12:19] LABS: Bacteria,Urine None Seen per hpf (None-Few); Hyaline Casts,Urine None Seen per lpf (None-Few); Squamous Epithelial Cell,Urine Many per lpf (None-Few)
--- NOTE | 2018-10-25 12:36 | Internal Med History&Physical ---
Date of Encounter: 10/25/18 Time of Encounter: 12:32 Internal Medicine - H&P: HPI Chief complaint: weakness, nausea/vomiting Admitted From: Home Plans for Post Hospital Care: Home History of present illness: Ms. Sampson is a 63 year old female past medical history of diabetes, hypertension, hemorrhagic stroke this year around June with some right-sided residual deficit who came in with complain of nausea vomiting and feeling very weak. She was here in the ER a few days ago with similar complaints and did not want to stay and was discharged. She comes with similar complaints slightly decreased vomiting but feeling much more weak. Denies having any fevers abdominal pain or diarrhea. Patient has diabetes and has been compliant with her Humalog and Lantus. She also takes jardiance and glipizide for diabetes. Denies having any urinary complaints. Denies any chest pain or difficulty breathing. Denies any skin rash, recent travel or sick contacts. Patient was evaluated in the ER which shows signs of an anion gap possibly from diabetic ketoacidosis with elevated beta hydroxybutyric acid. Admission was requested for further management. Patient was examined in the ER. She is hemodynamically stable however with some tachycardia and elevated blood pressure. Denies any chest pain or difficulty breathing. Above-mentioned history was confirmed. She does have some difficulty recalling her past medical history. She does have some residual deficits from her CVA. She did not remember what caused his hemorrhagic stroke. She had a loop recorder paced when she was discharged after the stroke however does not recall exact reasons. Past Med Surg Social Fam HX - Past Medical History Medical history: CVA (Hemorrhagic, September of this year), diabetes, hypertension, other Additional medical history: stroke Psychiatric history: no psych history - Past Surgical History Surgical History: hysterectomy, thyroidectomy - Social History Smoking Status: Never smoker Smokeless Tobacco Status: No Alcohol use: none Drug use: none - Family History Father Living Status: Hx Family Cardiac Disorders: Yes (HTN) Hx Family Respiratory Disorders: No Hx Family Cancer: Yes (Bone) Hx Family GI Disorders: No Hx Family Endocrine Disorder: Yes (DM) Hx Family Neuromuscular Disorders: No Hx Family Neurologic Disorders: No Hx Family HEENT Disorders: No Hx Family Autoimmune Disorders: No Brother Adopted: No Living Status: Still Living Hx Family Cardiac Disorders: Yes (HTN) Hx Family Respiratory Disorders: No Hx Family Cancer: No Hx Family GI Disorders: No Hx Family Endocrine Disorder: Yes Hx Family Neuromuscular Disorders: No Hx Family Neurologic Disorders: No Hx Family HEENT Disorders: No Hx Family Autoimmune Disorders: No Internal Medicine - H&P: Meds Atorvastatin [Lipitor] 40 mg PO HS 06/09/17 [History] Insulin Glargine [Lantus] 40 unit SQ HS 06/09/17 [History] Insulin LISPRO [Humalog Kwikpen U-100] 0 unit SQ ACHS 06/09/17 [History] Levothyroxine [Synthroid] 75 mcg PO 0630 06/09/17 [History] Meloxicam [Mobic] 7.5 mg PO DAILY 06/09/17 [History] Sertraline [Zoloft] 100 mg PO DAILY 06/09/17 [History] Cyclobenzaprine [Flexeril] 10 mg PO HS 05/23/18 [History] Dulaglutide [Trulicity] 1.5 mg SQ TU 05/23/18 [History] Empagliflozin [Jardiance] 10 mg PO DAILY 05/23/18 [History] GlipiZIDE [Glipizide Xl] 5 mg PO DAILY 05/23/18 [History] Lisinopril [Zestril] 20 mg PO DAILY 05/23/18 [History] Metformin HCl 1,000 mg PO QAM 05/23/18 [History] Calcium Carbonate [Calcium] 500 mg PO DAILY 10/25/18 [History] Allergy/AdvReac Type Severity Reaction Status Date / Time sulfamethoxazole Allergy Gastrointestinal Verified 10/25/18 10:03 [From Bactrim] Upset trimethoprim [From Bactrim] Allergy Gastrointestinal Verified 10/25/18 10:03 Upset All Systems PM: A 10-system review of systems was performed and is negative for pertinent findings except as documented above in the HPI. - Constitutional Vitals: Temp Pulse Resp BP Pulse Ox 97.5 F L 112 18 162/99 100 10/25/18 09:25 10/25/18 11:55 10/25/18 11:55 10/25/18 11:55 10/25/18 11:55 Exam: Constitutional: Vitals as noted. Conversant. mild distress due to nausea Eyes : Sclera white, conjunctiva clear, no lid lag, PEARLA. ENT : Grossly normal hearing. dry mucous membrane Respiratory : Clear to auscultation bilaterally. No accessory muscle use, rales, rhonchi or wheezes Cardiovascular : RRR, +S1, +S2. no murmur, gallop, rubs. No chest wall tenderness GI/Abdominal : Soft, Non-tender, Non-distended, normal bowel sounds, no peritoneal signs. no orgenomegaly or mass appreciated. no hernia. Musculoskeletal: no deformity noted. no edema or cyanosis. warm extremities, pulses palpable and symmetrical in UE/LE. no calf tenderness. Neurological: AO X3, grossly normal motor and sensory exam. Has difficulty speaking and finding words. RLE 3/5 LLE 4/5. RU/LUE 4/5. Skin: No skin rash, lesions or ulcers noted. Pych: poor memory. AOx3. Internal Med - H&P Results - Labs CBC & Chem 7: 10/25/18 10:35 10/25/18 10:35 Labs: Short CBC 10/25/18 Range/Units 10:35 WBC 7.8 (4.3-11.1) K/mcL Hgb 12.1 (11.5-15.4) g/dL Hct 37.3 (35.3-44.9) % Plt Count 150 (140-400) K/mcL Neutrophils # 6.1 (1.6-8.9) K/mcL BMP 10/25/18 10:35 Sodium 138 Potassium 3.1 L Chloride 107 Carbon Dioxide 15 L BUN 9 Creatinine 0.84 Glucose 340 H Calcium 9.1 Liver Function 10/25/18 Range/Units 10:35 Total Bilirubin 0.6 (0.3-1.0) mg/dL AST 8 L (13-39) Units/L ALT 6 L (7-52) Units/L Alkaline Phosphatase 103 (34-104) Units/L Albumin 3.6 (3.5-5.7) g/dL Urine 10/25/18 Range/Units 11:59 Urine Color Yellow (Yellow) Urine Clarity Clear (Clear) Urine pH 6.0 (5.0-8.0) pH Units Ur Specific Jermyn 1.019 (1.010-1.025) Urine Protein 30 H (Neg-Trace) mg/dL Urine Glucose (UA) >=1000 H (Normal) mg/dL - ABG Interpretation ABG results: 10/25/18 10:53 VBG pH 7.30 L VBG pCO2 28 L VBG pO2 80 H VBG HCO3 14 L - EKG Data -: EKG Interpreted by Myself EKG shows normal: sinus rhythm Rate: tachycardia - Assessment and Plan (1) DKA (diabetic ketoacidoses) Current Visit: Yes Status: Acute Assessment and plan: Patient has signs of mild diabetic ketoacidosis with anion gap of 16, mild acidosis on ABG and elevated beta hydroxybutyric acid Patient was started on insulin drip in ER. We will keep patient on insulin drip with DKA protocol and monitor BMP every 4 hours. We will switch to long-acting subcutaneous insulin when on a gap closed and bicarbonate improves. Patient would be kept on IV fluids with potassium. No obvious cause of DKA found. Urine analysis appears to be poor sample. Glucosuria likely from Jardiance. Chest x-ray unremarkable. We will obtain A1c in the morning. Qualifiers: Qualified Code(s): E10.10 - Type 1 diabetes mellitus with ketoacidosis without coma (2) CVA (cerebral vascular accident) Current Visit: No Status: Acute Assessment and plan: Patient has baseline right-sided deficit No new deficits. Continue PT/OT outpatient. Qualifiers: Qualified Code(s): I63.9 - Cerebral infarction, unspecified (3) DVT prophylaxis Current Visit: No Status: Acute Assessment and plan: We will keep patient on EPC D (4) Hypertension Current Visit: No Status: Acute Assessment and plan: Patient's blood pressure currently labile and elevated Will resume home PO medications and prn IV hydralazine for sbp>180 Qualifiers: Qualified Code(s): I10 - Essential (primary) hypertension - Time Spent With Patient Total time spent is greater than 50% in coordination of care (as documented) at patient's floor/unit and/or counseling patient:
[2018-10-25] MEDS ORDERED: Naloxone 0.4 MG/ML INJ IVP PRN (12:59)
[2018-10-25 13:40] LABS: BUN/Creatinine Ratio 11 (6-26); Blood Urea Nitrogen 8 mg/dL (8-23); Calcium 8.6 mg/dL (8.6-10.3); Carbon Dioxide 16 mEq/L (23-29); Chloride 106 mEq/L (98-107); Glucose 291 mg/dL (70-105); Osmolality,Calculated 291 (280-300); Sodium 136 mEq/L (136-145); eGFR For African Americans > 60 (> 60); eGFR For Non-African Americans > 60 (> 60)
[2018-10-25] MEDS: Insulin Human Regular 100 UNIT in 0.9 % Sodium Chloride 100 ML IVC SCH (13:43)
[2018-10-25] MEDS: Lisinopril 20 MG TABLET PO SCH (16:12)
[2018-10-25] MEDS: hydrALAZINE 10 MG TABLET PO PRN (17:28)
[2018-10-25 18:15] LABS: BUN/Creatinine Ratio 8 (6-26); Blood Urea Nitrogen 6 mg/dL (8-23); Calcium 8.9 mg/dL (8.6-10.3); Carbon Dioxide 19 mEq/L (23-29); Chloride 107 mEq/L (98-107); Glucose 185 mg/dL (70-105); Osmolality,Calculated 286 (280-300); Sodium 137 mEq/L (136-145); eGFR For African Americans > 60 (> 60); eGFR For Non-African Americans > 60 (> 60)
[2018-10-25 21:18] LABS: BUN/Creatinine Ratio 7 (6-26); Blood Urea Nitrogen 5 mg/dL (8-23); Calcium 9.1 mg/dL (8.6-10.3); Carbon Dioxide 17 mEq/L (23-29); Chloride 107 mEq/L (98-107); Glucose 131 mg/dL (70-105); Osmolality,Calculated 283 (280-300); Sodium 137 mEq/L (136-145); eGFR For African Americans > 60 (> 60); eGFR For Non-African Americans > 60 (> 60)
[2018-10-26] MEDS ORDERED: Insulin LISPRO 300 UNITS/3 ML VIAL SQ SCH (00:05)
[2018-10-26] MEDS: hydrALAZINE 10 MG TABLET PO PRN (02:53)
[2018-10-26 03:20] LABS: BUN/Creatinine Ratio 6 (6-26); Blood Urea Nitrogen 4 mg/dL (8-23); Calcium 9.1 mg/dL (8.6-10.3); Carbon Dioxide 15 mEq/L (23-29); Chloride 103 mEq/L (98-107); Glucose 301 mg/dL (70-105); Osmolality,Calculated 282 (280-300); Potassium 3.9 mEq/L (3.5-5.1); Sodium 132 mEq/L (136-145); eGFR For African Americans > 60 (> 60); eGFR For Non-African Americans > 60 (> 60)
[2018-10-26 07:23] LABS: BUN/Creatinine Ratio 5 (6-26); Blood Urea Nitrogen 4 mg/dL (8-23); Calcium 9.9 mg/dL (8.6-10.3); Carbon Dioxide 20 mEq/L (23-29); Chloride 106 mEq/L (98-107); Glucose 176 mg/dL (70-105); Osmolality,Calculated 283 (280-300); Potassium 3.3 mEq/L (3.5-5.1); Sodium 136 mEq/L (136-145); eGFR For African Americans > 60 (> 60); eGFR For Non-African Americans > 60 (> 60)
[2018-10-26] MEDS ORDERED: D5% in 0.45% NACL w KCl 20 MEQ/1,000 ML MLS IVC PRN (07:45)
[2018-10-26] MEDS ORDERED: Potassium Chloride Elixir 20 MEQ/15 ML UDC PO ONE (07:48)
[2018-10-26] MEDS: Lisinopril 20 MG TABLET PO SCH (08:20)
--- NOTE | 2018-10-26 11:40 | Internal Med Progress Note ---
<Esequiel Melo I - Last Filed: 10/26/18 15:08> Hospitalist Progress Note - Encounter Date of Encounter: 10/26/18 Time of Encounter: 09:20 - Subjective Interval History: 63-year-old female with past medical history of diabetes hypertension and hemorrhagic stroke and may present to the ER due to generalized weakness and malaise fatigue and decrease oral intake for the last week . she said she has been eating less since she had a hemorrhagic stroke in August , she had nause but denies vomiting she denies abdominal pain, chest pain, shortness of breath, they are reactive, dysuria, frequency, urgency, denies headache, focal weakness. Today patient seen and examined she lost and had a bad she still feels weak but better than yesterday - Exam Vitals: Temp Pulse Resp BP Pulse Ox 98.2 F 108 14 160/88 98 10/26/18 11:00 10/26/18 11:00 10/26/18 11:00 10/26/18 11:00 10/26/18 11:00 Exam: General: no acute distress , A&AX3 HEENT: Atraumatic, Normocephaly. sclera unicteric Neck: supple , Full ROM Cardiac: regular rythm , S1+. S2+ Lungs: Normal Breath Sounds, No Wheeze, Rales, Rhonchi Abdomen: Soft, Non-Tender Skin: dry skin , No rashes noted on visualized skin , Extremities: No Clubbing, No Cyanosis, No Edema, Normal Pulses Neuro : right upper extrimity strength 3/5 , left UE 4/5 right LE 3/5 , left LE 3/5 . decraese sensation to light touch on right side of body , cranial nerve intact - Assessment and Plan (1) DKA (diabetic ketoacidoses) Current Visit: Yes Status: Acute Assessment and Plan: Patient presented with generalized weakness fatigue numbness and decreased oral intake At the ER she was diagnosed with DKA most likely due to dehydration anion gap of 16 Metabolic acidosis on ABG PH 7.30, PCO2 28 , HCO3 14 and elevated beta hydroxybutyric acid >2 Urine analysis negative chest x-ray negative Patient was started on IV fluid & k on insulin drip until the ruslan closes Now sodium is 136 potassium 3.8 glucose 153 AG 11 we stoped insulin drip and IV fluid and started patient on levemir 10 units now and at bedtime with sliding scale insulin with meals DKA improving continue insulin levemir 10 units now and at bedtime with sliding scale insulin with meals Continue BMP every 4 hours accu check every hour (2) Hypertension Current Visit: Yes Status: Acute Assessment and Plan: This is a chronic condition blood pressure is 160/88. Continue blood pressure monitoring If it is more than 180 we give hydralazine (3) Dehydration Current Visit: Yes Status: Acute Assessment and Plan: Patient states she has been dehydrated. Since last week and she had decreased oral intake since she had hemorrhagic stroke in August Patient received IV fluids Vitals are stable except blood pressure is 160/88 (4) Hemorrhagic stroke Current Visit: Yes Status: Acute Assessment and Plan: This is a chronic condition at happened in August 2018 Patient has baseline right-sided deficit No new deficits. Continue PT/OT DVT Prophylaxis: EPC - Time Spent with Patient Total time spent is greater than 50% in coordination of care (as documented) at patient's floor/unit and/or counseling patient: Internal Medicine: Result - Labs CBC & Chem 7: 10/25/18 10:35 10/26/18 13:34 Labs: BMP 10/25/18 10/25/18 10/25/18 13:13 17:24 20:43 Sodium 136 137 137 Potassium 3.0 L 3.0 L 3.0 L Chloride 106 107 107 Carbon Dioxide 16 L 19 L 17 L BUN 8 6 L 5 L Creatinine 0.74 0.73 0.68 Glucose 291 H 185 H 131 H Calcium 8.6 8.9 9.1 10/26/18 10/26/18 02:31 06:31 Sodium 132 L 136 Potassium 3.9 D 3.3 L Chloride 103 106 Carbon Dioxide 15 L 20 L BUN 4 L 4 L Creatinine 0.66 0.74 Glucose 301 H 176 H Calcium 9.1 9.9 Urine 10/25/18 Range/Units 11:59 Urine Color Yellow (Yellow) Urine Clarity Clear (Clear) Urine pH 6.0 (5.0-8.0) pH Units Ur Specific [place] 1.019 (1.010-1.025) Urine Protein 30 H (Neg-Trace) mg/dL Urine Glucose (UA) >=1000 H (Normal) mg/dL - Impressions Impressions Chest X-Ray 10/25/18 12:07 IMPRESSION: No evidence for acute cardiopulmonary process. D/ / Richard Wells MD / Richard Wells MD Interpreting Provider: Richard Wells MD Consult Discharge Plan - Plan Referrals: Norberto Henriquez MD [Primary Care Provider] - <Sofy Vega - Last Filed: 10/26/18 15:12> Hospitalist Progress Note - Encounter Date of Encounter: 10/26/18 - Exam Vitals: Temp Pulse Resp BP Pulse Ox 98.1 F 102 14 167/96 98 10/26/18 15:00 10/26/18 15:00 10/26/18 15:00 10/26/18 15:00 10/26/18 15:00 - Assessment and Plan (1) DKA (diabetic ketoacidoses) Current Visit: Yes Status: Acute (2) DVT prophylaxis Current Visit: No Status: Acute (3) Hypertension Current Visit: No Status: Acute (4) CVA (cerebral vascular accident) Current Visit: No Status: Acute - Time Spent with Patient Total time spent is greater than 50% in coordination of care (as documented) at patient's floor/unit and/or counseling patient: Internal Medicine: Result - Labs CBC & Chem 7: 10/25/18 10:35 10/26/18 13:34 Labs: BMP 10/25/18 10/25/18 10/26/18 17:24 20:43 02:31 Sodium 137 137 132 L Potassium 3.0 L 3.0 L 3.9 D Chloride 107 107 103 Carbon Dioxide 19 L 17 L 15 L BUN 6 L 5 L 4 L Creatinine 0.73 0.68 0.66 Glucose 185 H 131 H 301 H Calcium 8.9 9.1 9.1 10/26/18 10/26/18 06:31 13:34 Sodium 136 136 Potassium 3.3 L 3.8 Chloride 106 105 Carbon Dioxide 20 L 20 L BUN 4 L 4 L Creatinine 0.74 0.72 Glucose 176 H 153 H Calcium 9.9 10.0 - Attending Attestation I examined this patient and my medical decision-making was reviewed with the Resident Physician Dr Melo. I agree with the documented findings, disposition and treatment plan as described except to the extent set forth below. Ms Sampson is a 63F w pmhx diabetes, hypertension, hemorrhagic stroke this year who presented to ED in DKA. She is being observed for DKA. Our team assumed care this morning. Confirmed with pharmacy she receive IVF boluses and K+ riders but did not have MIVFs yesterday. She remains on insulin gtt this morning that per night team was being held overnight due to K+ running. awake, family present. She states she feels better but she can't really say how. Denies abd pain, n/v. No fevers, chills, or recent cough, cold, congestion, diarrhea, dysuria, hematuria or change in urinary frequency, no skin wounds, rashes. She states she is taking all her home regimen though she can't say what it is and family at bedside stays silent and offers no addl info. She states she "got home" about a week ago (?rehab) and hasn't felt like eating or drinking at all, can't say why. She denies palpitations,, cp, pressure or sob with tachycardia since admit. gen- alert, awake,appears stated age eyes- pupils equal round , eom intact cv- tachy rate 120s on bedside tele and reg rhythm, normal s1,s2, no murmurs appreciated, no le edema lungs- ctabl, no wheezing, rhonchi or crackles, normal resp effort on ra abd- soft, non tender, non distended, + bs neuro- AAOx3, CN grossly intact, mild dysarthria Diabetes Mellitus with buttermaker continuous churn insulin use and unknown complications DKA -she remained with electrolyte abnormalities this morning, gap closed, but bl 200s, tachycardia and volume depleted with hypokalemia as well--cont tele and started 1/2 NS w Kcl, cont insulin gtt and npo and then repeated labs early afternoon -1300 pm labs showed normal Na, normal K, bicarb 20, gap closed and glc <200--transitioned to insulin regimen then stop insulin gtt, diet ordered, ivfs can be stopped -her home regimen is oral + insulin on last admit bt pt unable to confirm dose and pharmacy has not been able to confirm either, most recently: luzmaria hendricks, U100 insulin TIAD AC, Lantus 40 HS, glipizide and metformin -will ask pharmacy saturday if they can obtain further info -weight based dosing of insulin would be 38-60 units and home lantus dose previously 40 units it appears -will give levemir 10 units this afternoon followed by 10 units at bedtime + TID AC HS SSI this evening -suspect we will be adding Levemir 20 units BID tomorrow based on weight and prev dosing but will asses glucose trend in am - I have high suspicion given her inability to note what her home regimen is that this episode is related to non compliance as there is not an indicaiton she has infectious process at this time HTN, bp elevated to 150-160s sbp- cont home acei, monitor, may need to increase, prn IV med for sbp >160 given her hx hemorrhagic cva in past sinus tachycardia suspected 2/2 volume depletion and hypokalemia- treatment as above, tele Hypokalemia- resolved with IVF Kcl additive plus oral KCl today, cont to monitor Hx Hemorrhagic CVA a couple months ago, residual right sided deficits + dysarthria- cont home statin, not on asa vte ppx scds only <Esequiel Melo I - Last Filed: 10/26/18 15:08> (1) DKA (diabetic ketoacidoses) Qualifiers: Diabetes mellitus type: type 1 Diabetes mellitus complication detail: without coma Qualified Code(s): E10.10 - Type 1 diabetes mellitus with ketoacidosis without coma <Sofy Vega M - Last Filed: 10/26/18 15:12> (1) DKA (diabetic ketoacidoses) Qualifiers: Diabetes mellitus type: type 1 Diabetes mellitus complication detail: without coma Qualified Code(s): E10.10 - Type 1 diabetes mellitus with ketoacidosis without coma (3) Hypertension Qualifiers: Hypertension type: essential hypertension Qualified Code(s): I10 - Essential (primary) hypertension (4) CVA (cerebral vascular accident) Qualifiers: CVA mechanism: unspecified Qualified Code(s): I63.9 - Cerebral infarction, unspecified
[2018-10-26] MEDS: 0.45 % Sodium Chloride w/KCl 20 MEQ/1,000 ML MLS IVC SCH ×2 (12:01→12:10)
[2018-10-26] MEDS: Insulin Human Regular 100 UNIT in 0.9 % Sodium Chloride 100 ML IVC SCH (12:02)
[2018-10-26 14:11] LABS: BUN/Creatinine Ratio 6 (6-26); Blood Urea Nitrogen 4 mg/dL (8-23); Carbon Dioxide 20 mEq/L (23-29); Chloride 105 mEq/L (98-107); Glucose 153 mg/dL (70-105); Osmolality,Calculated 282 (280-300); Potassium 3.8 mEq/L (3.5-5.1); Sodium 136 mEq/L (136-145); eGFR For African Americans > 60 (> 60); eGFR For Non-African Americans > 60 (> 60)
[2018-10-26] MEDS ORDERED: *HR* Dextrose 50 % in Water (Syg) 50 ML SYRINGE IVP PRN (14:16)
[2018-10-26] MEDS ORDERED: D5% in Water 1,000 ML IVC PRN (14:16)
[2018-10-26] MEDS ORDERED: Dextrose Gel 15 GM/37.5 ML TUBE PO PRN ×2 (14:16)
[2018-10-26] MEDS ORDERED: Insulin DETEMIR 100 UNIT/ML X5UNITS SQ ONE ×2 (14:35→21:00)
--- NOTE | 2018-10-26 15:12 | Event Note ---
Date of Encounter: 10/26/18 Time of Encounter: 08:40 to serve as attending attestation pending completion of resident progress note I examined this patient and my medical decision-making was reviewed with the Resident Physician Dr Melo. I agree with the documented findings, disposition and treatment plan as described except to the extent set forth below. Ms Sampson is a 63F w pmhx diabetes, hypertension, hemorrhagic stroke this year who presented to ED in DKA. She is being observed for DKA. Our team assumed care this morning. Confirmed with pharmacy she receive IVF boluses and K+ riders but did not have MIVFs yesterday. She remains on insulin gtt this morning that per night team was being held overnight due to K+ running. awake, family present. She states she feels better but she can't really say how. Denies abd pain, n/v. No fevers, chills, or recent cough, cold, congestion, diarrhea, dysuria, hematuria or change in urinary frequency, no skin wounds, rashes. She states she is taking all her home regimen though she can't say what it is and family at bedside stays silent and offers no addl info. She states she "got home" about a week ago (?rehab) and hasn't felt like eating or drinking at all, can't say why. She denies palpitations,, cp, pressure or sob with tachycardia since admit. gen- alert, awake,appears stated age eyes- pupils equal round , eom intact cv- tachy rate 120s on bedside tele and reg rhythm, normal s1,s2, no murmurs appreciated, no le edema lungs- ctabl, no wheezing, rhonchi or crackles, normal resp effort on ra abd- soft, non tender, non distended, + bs neuro- AAOx3, CN grossly intact, mild dysarthria Diabetes Mellitus with terminal carman insulin use and unknown complications DKA -she remained with electrolyte abnormalities this morning, gap closed, but bl 200s, tachycardia and volume depleted with hypokalemia as well--cont tele and started 1/2 NS w Kcl, cont insulin gtt and npo and then repeated labs early afternoon -1300 pm labs showed normal Na, normal K, bicarb 20, gap closed and glc <200--transitioned to insulin regimen then stop insulin gtt, diet ordered, ivfs can be stopped -her home regimen is oral + insulin on last admit bt pt unable to confirm dose and pharmacy has not been able to confirm either, most recently: jardaсергейe, trjohnity, U100 insulin TIAD AC, Lantus 40 HS, glipizide and metformin -will ask pharmacy saturday if they can obtain further info -weight based dosing of insulin would be 38-60 units and home lantus dose previously 40 units it appears -will give levemir 10 units this afternoon followed by 10 units at bedtime + TID AC HS SSI this evening -suspect we will be adding Levemir 20 units BID tomorrow based on weight and prev dosing but will asses glucose trend in am - I have high suspicion given her inability to note what her home regimen is that this episode is related to non compliance as there is not an indicaiton she has infectious process at this time HTN, bp elevated to 150-160s sbp- cont home acei, monitor, may need to increase, prn IV med for sbp >160 given her hx hemorrhagic cva in past sinus tachycardia suspected 2/2 volume depletion and hypokalemia- treatment as above, tele Hypokalemia- resolved with IVF Kcl additive plus oral KCl today, cont to monitor Hx Hemorrhagic CVA a couple months ago, residual right sided deficits + dysarthria- cont home statin, not on asa vte ppx scds only
[2018-10-26] MEDS: Insulin LISPRO 300 UNITS/3 ML VIAL SQ SCH ×2 (17:00→22:36)
[2018-10-26] MEDS: *HR* Metoprolol 5 MG/5 ML VIAL IVP PRN (22:34)
--- NOTE | 2018-10-27 07:58 | Internal Med Progress Note ---
<Ulises Meier Gloria - Last Filed: 10/27/18 17:13> Hospitalist Progress Note - Encounter Date of Encounter: 10/27/18 Time of Encounter: 10:00 - Subjective Interval History: Patient seen and examined at bedside this morning. Patient reports no new or worsening complaints at this time. Denies nausea, vomiting, diarrhea, shortness of breath, dysuria. Reports she does have an appetite. On exam she does appear to be dry, will give fluid bolus. Additionally her anion gap is still 13, but her blood sugars under 250,her insulin drip has been turned off overnight. We will recheck a BMP, if gap is closed continue without the drip. - Exam Vitals: Temp Pulse Resp BP Pulse Ox 97.9 F 80 16 149/85 97 10/27/18 07:16 10/27/18 07:16 10/27/18 07:16 10/27/18 07:16 10/27/18 04:02 Exam: Gen.: Alert and oriented, no acute distress Head: Atraumatic, normocephalic Eyes: EOMI, anicteric ENT: Mucous membranes dry, oropharynx clear CV: Grade 3 systolic murmur present, regular rate and rhythm Respiratory: Clear to auscultation bilaterally, no wheezes, rales, rhonchi Abdomen: Soft, nontender, nondistended, no guarding Extremities: No rashes, bleeding Neuro: Dysarthria noted, right lower extremity weakness noted, sensation intact - Assessment and Plan (1) DKA (diabetic ketoacidoses) Current Visit: Yes Status: Acute Assessment and Plan: Patient presented with fatigue, weakness, numbness Found to be in DKA, likely secondary to medication nonadherence in addition to decreased oral intake and dehydration Anion gap of 16 on admission, repeat BMP today shows anion gap of 13 Did have a metabolic acidosis on admission, pH 7.3, bicarbonate 14 No VBG available to assess pH today however bicarbonate has improved to 19 Beta hydroxybutyric acid was greater than 2 on admission no evidence of infectious process at this time, vitals stable, UA negative, chest x-ray negative Patient was started on IV fluids, potassium, insulin drip Was switched off drip on October 27 Levemir 10 units given at bedtime last night with 11 units sliding scale insulin throughout the day Plan: -Fluid bolus 500 mL given this afternoon -Repeat BMP to assess anion gap -15 units Levemir scheduled this morning, we will assess blood glucose in the morning and adjust accordingly (2) Hypertension Current Visit: Yes Status: Acute Assessment and Plan: Patient has a known history of hypertension Patient did have a reading of greater than 200 systolic since admission Hydralazine when necessary for greater than 170 systolic has been ordered Will continue to monitor and adjust medications as needed (3) CVA (cerebral vascular accident) Current Visit: No Status: Acute Assessment and Plan: 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 This happened back in August She has had persistent deficits since that time Mostly decreased strength in her right lower extremity, sensation intact Additionally, the patient has had dysarthria since that Patient instructed to continue PT/OT (4) Hypokalemia Current Visit: Yes Status: Acute Assessment and Plan: Secondary to DKA Resolved yesterday secondary to IV fluids with oral potassium chloride Today her potassium was low again, 3 performed Replaced with oral potassium chloride We will continue to monitor and replace as DVT Prophylaxis: SCDs - Time Spent with Patient Total time spent is greater than 50% in coordination of care (as documented) at patient's floor/unit and/or counseling patient: Internal Medicine: Result - Labs CBC & Chem 7: 10/25/18 10:35 10/27/18 14:48 Labs: BMP 10/26/18 13:34 Sodium 136 Potassium 3.8 Chloride 105 Carbon Dioxide 20 L BUN 4 L Creatinine 0.72 Glucose 153 H Calcium 10.0 Consult Discharge Plan - Plan Referrals: Norberto Henriquez MD [Primary Care Provider] - <Sofy Vega - Last Filed: 10/27/18 17:36> Hospitalist Progress Note - Encounter Date of Encounter: 10/27/18 - Exam Vitals: Temp Pulse Resp BP Pulse Ox 98 F 83 16 174/83 97 10/27/18 15:45 10/27/18 15:45 10/27/18 11:07 10/27/18 15:45 10/27/18 04:02 - Assessment and Plan (1) DKA (diabetic ketoacidoses) Current Visit: Yes Status: Acute (2) DVT prophylaxis Current Visit: No Status: Acute (3) Hypertension Current Visit: No Status: Acute (4) CVA (cerebral vascular accident) Current Visit: No Status: Acute - Time Spent with Patient Total time spent is greater than 50% in coordination of care (as documented) at patient's floor/unit and/or counseling patient: Internal Medicine: Result - Labs CBC & Chem 7: 10/25/18 10:35 10/27/18 14:48 Labs: BMP 10/27/18 10/27/18 09:04 14:48 Sodium 136 137 Potassium 3.4 L 3.3 L Chloride 104 105 Carbon Dioxide 19 L 22 L BUN 7 L 9 Creatinine 0.70 0.69 Glucose 241 H 165 H Calcium 9.7 9.9 - Attending Attestation I examined this patient and my medical decision-making was reviewed with the Resident Physician Dr meier. I agree with the documented findings, disposition and treatment plan as described except to the extent set forth below. I examined this patient and my medical decision-making was reviewed with the Resident Physician Dr Melo. I agree with the documented findings, disposition and treatment plan as described except to the extent set forth below. Ms Sampson is being observed for DKA. awake, no family present, offers little spontaneous info but answers all questions. feeling better, cannot discern how. denies abd pain, n/v/fatigue. did not eat breakfast bc she didn't like the food . encouraged oral intake. gen- alert, awake,appears stated age cv- treg rate and reg rhythm, normal s1,s2, lungs- ctabl, normal resp effort on ra neuro- AAOx3, CN grossly intact, mild dysarthria Diabetes Mellitus with intermediate designer insulin use and unknown complications DKA, resolved, likely 2/2 non compliance - levemir dose adjusted this morning + SSI and cont to monitor, monitor oral intake as has been poor, prn hypoglycemics HTN, above goal- cont home acei, if elevated above goal throughout day will increase in am, prn IV med for sbp >160 given her hx hemorrhagic cva in past sinus tachycardia suspected 2/2 volume depletion and hypokalemia- resolved Hx Hemorrhagic CVA a couple months ago, residual right sided deficits + dysarthria- cont home statin, not on asa vte ppx scds only <HardeepUlises M - Last Filed: 10/27/18 17:13> (1) DKA (diabetic ketoacidoses) Qualifiers: Diabetes mellitus type: type 1 Diabetes mellitus complication detail: without coma Qualified Code(s): E10.10 - Type 1 diabetes mellitus with ketoacidosis without coma (3) CVA (cerebral vascular accident) Qualifiers: CVA mechanism: unspecified Qualified Code(s): I63.9 - Cerebral infarction, unspecified <Sofy Vega M - Last Filed: 10/27/18 17:36> (1) DKA (diabetic ketoacidoses) Qualifiers: Diabetes mellitus type: type 1 Diabetes mellitus complication detail: without coma Qualified Code(s): E10.10 - Type 1 diabetes mellitus with ketoacidosis without coma (3) Hypertension Qualifiers: Hypertension type: essential hypertension Qualified Code(s): I10 - Essential (primary) hypertension (4) CVA (cerebral vascular accident) Qualifiers: CVA mechanism: unspecified Qualified Code(s): I63.9 - Cerebral infarction, unspecified
[2018-10-27] MEDS: Lisinopril 20 MG TABLET PO SCH (08:18)
[2018-10-27] MEDS: Insulin LISPRO 300 UNITS/3 ML VIAL SQ SCH ×4 (08:18→21:06)
[2018-10-27] MEDS ORDERED: Insulin DETEMIR 100 UNIT/ML X5UNITS SQ SCH (09:00)
[2018-10-27 10:06] LABS: BUN/Creatinine Ratio 10 (6-26); Blood Urea Nitrogen 7 mg/dL (8-23); Calcium 9.7 mg/dL (8.6-10.3); Carbon Dioxide 19 mEq/L (23-29); Chloride 104 mEq/L (98-107); Glucose 241 mg/dL (70-105); Magnesium 1.6 mg/dL (1.6-2.6); Osmolality,Calculated 288 (280-300); Potassium 3.4 mEq/L (3.5-5.1); Sodium 136 mEq/L (136-145); eGFR For African Americans > 60 (> 60); eGFR For Non-African Americans > 60 (> 60)
[2018-10-27] MEDS: *HR* Metoprolol 5 MG/5 ML VIAL IVP PRN ×2 (12:08→21:13)
[2018-10-27] MEDS ORDERED: 0.9 % Sodium Chloride 500 ML IVC ONE (13:26)
[2018-10-27 15:36] LABS: BUN/Creatinine Ratio 13 (6-26); Blood Urea Nitrogen 9 mg/dL (8-23); Calcium 9.9 mg/dL (8.6-10.3); Carbon Dioxide 22 mEq/L (23-29); Chloride 105 mEq/L (98-107); Glucose 165 mg/dL (70-105); Osmolality,Calculated 286 (280-300); Potassium 3.3 mEq/L (3.5-5.1); Sodium 137 mEq/L (136-145); eGFR For African Americans > 60 (> 60); eGFR For Non-African Americans > 60 (> 60)
[2018-10-28 06:56] LABS: BUN/Creatinine Ratio 13 (6-26); Blood Urea Nitrogen 9 mg/dL (8-23); Calcium 9.4 mg/dL (8.6-10.3); Carbon Dioxide 20 mEq/L (23-29); Chloride 106 mEq/L (98-107); Glucose 252 mg/dL (70-105); Magnesium 1.5 mg/dL (1.6-2.6); Osmolality,Calculated 293 (280-300); Potassium 3.4 mEq/L (3.5-5.1); Sodium 138 mEq/L (136-145); eGFR For African Americans > 60 (> 60); eGFR For Non-African Americans > 60 (> 60)
[2018-10-28] MEDS: Insulin DETEMIR 100 UNIT/ML X5UNITS SQ SCH (09:48)
[2018-10-28] MEDS: Insulin LISPRO 300 UNITS/3 ML VIAL SQ SCH ×4 (09:50→20:41)
[2018-10-28] MEDS: Lisinopril 20 MG TABLET PO SCH (09:53)
--- NOTE | 2018-10-28 16:10 | Internal Med Progress Note ---
<Ulises Nathan - Last Filed: 10/28/18 16:34> Hospitalist Progress Note - Encounter Date of Encounter: 10/28/18 Time of Encounter: 09:00 - Subjective Interval History: Patient was seen and examined at bedside this morning with nurse present. Patient was awake and responded to questions appropriately. She states she is feeling better, does not specifically state how. Admits to an appetite and did eat most of her lunch and dinner yesterday, however has only eaten very little of her meal today. Her blood sugars continue to be persistently high, have increased her basal insulin accordingly. Patient does have persistently elevated hypertension running mostly in the 150s to 160s systolic. We will continue to monitor overnight and adjust her oral antihypertensive medications in the morning according. She does appear to be more hydrated this morning and has again been encouraged to increase oral intake - Exam Vitals: Temp Pulse Resp BP Pulse Ox 98.3 F 118 17 125/69 98 10/28/18 06:59 10/28/18 15:25 10/28/18 04:54 10/28/18 15:25 10/28/18 14:16 Exam: Gen.: Alert and oriented, no acute distress Head: Atraumatic, normocephalic Eyes: EOMI, anicteric ENT: Mucous membranes moist, oropharynx clear CV: Grade 3 systolic murmur present, regular rate and rhythm Respiratory: Clear to auscultation bilaterally, no wheezes, rales, rhonchi Abdomen: Soft, nontender, nondistended, no guarding Extremities: No rashes, bleeding Neuro: Dysarthria noted, right lower extremity weakness noted, sensation intact - Assessment and Plan (1) DKA (diabetic ketoacidoses) Current Visit: Yes Status: Acute Assessment and Plan: Patient presented with fatigue, weakness, numbness Labs revealed a metabolic acidosis with anion gap of 16 admission Beta hydroxybutyric acid was greater than Patient was admitted for DKA and started on insulin drip Likely secondary to medication noncompliance in addition to decreased oral intake and dehydration Patient's electrolytes have improved slowly Patient was switched off insulin drip and started on basal insulin She continues to have persistently elevated blood sugars, this morning was 258 Her anion gap did close temporarily yesterday however today is back up to 12 Plan: -We will continue to slowly titrate her basal insulin until euglycemic -We will continue to replace her electrolytes as indicated -We will continue to encourage increased oral intake -Continue to trend BMPs -Up to 22 units of Levemir this morning (2) Hypertension Current Visit: Yes Status: Acute Assessment and Plan: Patient does have a known history of heart Patient did have persistently elevated blood pressures since admission On one occasion she was greater than 200 systolic Additionally, had 1 bout of hypotension this afternoon She does have metoprolol ordered for greater than 160 systolic She does have a history of hemorrhagic stroke Plan: -We will monitor overnight to watch her blood pressure trended -Metoprolol when necessary for greater than 160 systolic -We will adjust her antihypertensive medications in the morning based on readings overnight (3) CVA (cerebral vascular accident) Current Visit: No Status: Acute Assessment and Plan: Patient does have a known history of hemorrhagic stroke Occurred back in August, has persistent deficits since then Reports decreased strength in right lower extremity however denies any paresthesias sensation is intact On exam she is slightly weaker in the right lower than in the left lower extremity Patient also reports dysarthria since that time Patient did mention that since that time she occasionally feels like water "goes down the wrong pipe" Plan: -We will consider speech therapy consult -We will monitor for aspiration risk overnight -Can perform MBS if concern for aspiration (4) Hypokalemia Current Visit: Yes Status: Acute Assessment and Plan: Secondary to DKA Resolved yesterday subsequent to IV fluid and oral potassium replacement 3.4 on BMP this morning plan: -Continue to replace -Continue to trend DVT Prophylaxis: SCDs - Time Spent with Patient Total time spent is greater than 50% in coordination of care (as documented) at patient's floor/unit and/or counseling patient: Internal Medicine: Result - Labs CBC & Chem 7: 10/25/18 10:35 10/28/18 06:08 Labs: BMP 10/28/18 06:08 Sodium 138 Potassium 3.4 L Chloride 106 Carbon Dioxide 20 L BUN 9 Creatinine 0.67 Glucose 252 H Calcium 9.4 Consult Discharge Plan - Plan Referrals: Norberto Henriquez MD [Primary Care Provider] - <Sofy Vega - Last Filed: 10/28/18 17:04> Hospitalist Progress Note - Encounter Date of Encounter: 10/28/18 - Exam Vitals: Temp Pulse Resp BP Pulse Ox 98.3 F 118 17 125/69 98 10/28/18 06:59 10/28/18 15:25 10/28/18 04:54 10/28/18 15:25 10/28/18 14:16 - Assessment and Plan (1) DKA (diabetic ketoacidoses) Current Visit: Yes Status: Acute (2) DVT prophylaxis Current Visit: No Status: Acute (3) Hypertension Current Visit: No Status: Acute (4) CVA (cerebral vascular accident) Current Visit: No Status: Acute - Time Spent with Patient Total time spent is greater than 50% in coordination of care (as documented) at patient's floor/unit and/or counseling patient: Internal Medicine: Result - Labs CBC & Chem 7: 10/25/18 10:35 10/28/18 06:08 Labs: BMP 10/28/18 06:08 Sodium 138 Potassium 3.4 L Chloride 106 Carbon Dioxide 20 L BUN 9 Creatinine 0.67 Glucose 252 H Calcium 9.4 - Attending Attestation I examined this patient and my medical decision-making was reviewed with the Resident Physician Dr nathan. I agree with the documented findings, dis position and treatment plan as described except to the extent set forth below. Ms Sampson is being observed for DKA. awake, no family present, feeling better, improved energy, no abd pain, n/v. 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 and unknown complications DKA, resolved, likely 2/2 non compliance - levemir dose adjusted this morning + SSI and cont to monitor HTN,- cont acei, prn IV med for sbp >160 given her hx hemorrhagic cva in past Hx Hemorrhagic CVA a couple months ago, residual right sided deficits + dysarthria- cont home statin, not on asa dispo will be to home with , SW will discuss HHC with them pending glucose levels pt may be able to dc to home in next 24 hrs <Ulises Nathan M - Last Filed: 10/28/18 16:34> (1) DKA (diabetic ketoacidoses) Qualifiers: Diabetes mellitus type: type 1 Diabetes mellitus complication detail: without coma Qualified Code(s): E10.10 - Type 1 diabetes mellitus with ketoacidosis without coma (3) CVA (cerebral vascular accident) Qualifiers: CVA mechanism: unspecified Qualified Code(s): I63.9 - Cerebral infarction, unspecified <Sofy Vega M - Last Filed: 10/28/18 17:04> (1) DKA (diabetic ketoacidoses) Qualifiers: Diabetes mellitus type: type 1 Diabetes mellitus complication detail: without coma Qualified Code(s): E10.10 - Type 1 diabetes mellitus with ketoacidosis without coma (3) Hypertension Qualifiers: Hypertension type: essential hypertension Qualified Code(s): I10 - Essential (primary) hypertension (4) CVA (cerebral vascular accident) Qualifiers: CVA mechanism: unspecified Qualified Code(s): I63.9 - Cerebral infarction, unspecified
--- NOTE | 2018-10-28 21:36 | Electrocardiograph Report ---
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
[2018-10-29 07:06] LABS: BUN/Creatinine Ratio 14 (6-26); Blood Urea Nitrogen 10 mg/dL (8-23); Calcium 9.2 mg/dL (8.6-10.3); Carbon Dioxide 25 mEq/L (23-29); Chloride 105 mEq/L (98-107); Glucose 251 mg/dL (70-105); Magnesium 1.9 mg/dL (1.6-2.6); Osmolality,Calculated 298 (280-300); Potassium 3.7 mEq/L (3.5-5.1); Sodium 140 mEq/L (136-145); eGFR For African Americans > 60 (> 60); eGFR For Non-African Americans > 60 (> 60)
[2018-10-29] MEDS: Insulin LISPRO 300 UNITS/3 ML VIAL SQ SCH ×4 (07:49→20:33)
[2018-10-29] MEDS: Insulin DETEMIR 100 UNIT/ML X5UNITS SQ SCH (07:50)
[2018-10-29] MEDS: Lisinopril 20 MG TABLET PO SCH (07:50)
--- NOTE | 2018-10-29 08:17 | Discharge Summary ---
<Ulises Meier - Last Filed: 10/30/18 11:26> - NOTES TO OUTPATIENT PROVIDER Notes to Outpatient Provider: Patient was admitted for DKA secondary to dehydration/poor oral intake. Patient was ultimately switched to basal insulin with sliding scale at meals. Patient was discharged on 22 units in the morning of Levemir with instructions for sliding scale insulin 3 times a day with meals. PT/OT assess the patient and recommended rehabilitation. Follow-up with the patient regarding her blood glucose management and her hypertension. Orders not resulted at time of discharge: Pending orders 10/25/18 10:35 Culture,Blood [BC] Stat Date of Encounter: 10/30/18 Time of Encounter: 09:00 - Discharge Diagnosis (1) DKA (diabetic ketoacidoses) Priority: Primary Status: Resolved Qualifiers: Diabetes mellitus type: type 1 Diabetes mellitus complication detail: without coma Qualified Code(s): E10.10 - Type 1 diabetes mellitus with ketoacidosis without coma (2) Hypertension Priority: Secondary Status: Chronic Qualifiers: Hypertension type: essential hypertension Qualified Code(s): I10 - Essential (primary) hypertension (3) CVA (cerebral vascular accident) Priority: Secondary Status: Chronic Qualifiers: CVA mechanism: unspecified Qualified Code(s): I63.9 - Cerebral infarction, unspecified (4) Hypokalemia Priority: Secondary Status: Resolved Hospital course: Ms. 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 She was seen several days prior to this event in the emergency department for similar complaints but did not want to stay and was ultimately discharged. Since that time she states she had been feeling much more weak but had been vomiting less. She denied fevers, abdominal pain, diarrhea. She has been compliant with her Humalog and Lantus in addition to her chart events and glipizide. She denied any urinary complaints, respiratory complaints, cardiac complaints. In the emergency department her vitals were significant for tachycardia and elevated blood pressure. She was found to have a wide anion gap metabolic acidosis. Beta hydroxybutyric acid was greater than 2. ABG revealed pH of 7.3 with decreased bicarbonate. She was admitted to the hospital for diabetic ketoacidosis, started on a DKA protocol, serial BMPs were taken every 4 hours, patient was placed on insulin drip and her electrolytes were replaced according to her protocols. He was switched to subcutaneous insulin on hospital day 2 secondary to her Being closed and her improvement in bicarbonate levels. The patient was tolerating food well and her insulin requirements were uptitrated based on Accu-Chek readings. On hospital day 4 she was hemodynamically stable for discharge and her lab work remained significantly improved. However, a PT/OT evaluation revealed that the patient would need inpatient rehabilitation secondary to her residual right lower leg weakness from CVA. The patient was agreeable to transfer to a rehabilitation facility and stated she wanted to go to [facility]. The patient was able to be discharged until hospital day 5 when a bed opened [facility] patient was accepted for transfer. She will be discharged with basal insulin 22 units per day and sliding scale insulin 3 times a day with meals. The patient was agreeable to this plan of care. Discharge discussed with: patient, nurse - Time Spent with Patient Total time spent providing and/or coordinating discharge services: Time spent: Greater than 30 minutes - Discharge Medications Prescriptions: New Insulin LISPRO [HumaLOG] 0 units SQ HS vial Insulin LISPRO [HumaLOG] 0 units SQ TIDAC vial Insulin DETEMIR [Levemir] 22 unit SQ DAILY [id number] Continued Sertraline [Zoloft] 100 mg PO DAILY Levothyroxine [Synthroid] 75 mcg PO 0630 Meloxicam [Mobic] 7.5 mg PO DAILY Atorvastatin [Lipitor] 40 mg PO HS Lisinopril [Zestril] 20 mg PO DAILY Cyclobenzaprine [Flexeril] 10 mg PO HS Empagliflozin [Jardiance] 10 mg PO DAILY Calcium Carbonate [Calcium] 500 mg PO DAILY Discontinued Insulin LISPRO [Humalog Kwikpen U-100] 0 unit SQ ACHS Insulin Glargine [Lantus] 0 unit SQ HS GlipiZIDE [Glipizide Xl] 5 mg PO DAILY Home Medications: Atorvastatin [Lipitor] 40 mg PO HS 06/09/17 [History] Levothyroxine [Synthroid] 75 mcg PO 0630 06/09/17 [History] Meloxicam [Mobic] 7.5 mg PO DAILY 06/09/17 [History] Sertraline [Zoloft] 100 mg PO DAILY 06/09/17 [History] Cyclobenzaprine [Flexeril] 10 mg PO HS 05/23/18 [History] Empagliflozin [Jardiance] 10 mg PO DAILY 05/23/18 [History] Lisinopril [Zestril] 20 mg PO DAILY 05/23/18 [History] Calcium Carbonate [Calcium] 500 mg PO DAILY 10/25/18 [History] Insulin DETEMIR [Levemir] 22 unit SQ DAILY [id number] 10/30/18 [Rx] Insulin LISPRO [HumaLOG] 0 units SQ HS vial 10/30/18 [Rx] Insulin LISPRO [HumaLOG] 0 units SQ TIDAC vial 10/30/18 [Rx] Allergies/Adverse Reactions: Allergy/AdvReac Type Severity Reaction Status Date / Time sulfamethoxazole Allergy Gastrointestinal Verified 10/26/18 13:49 [From Bactrim] Upset trimethoprim [From Bactrim] Allergy Gastrointestinal Verified 10/26/18 13:49 Upset Date of admission: 10/25/18 13:00 Primary care physician: Norberto Henriquez Consults: 10/25/18 17:14 Consult to Nutrition [CONS] Routine Comment: recent weight lose Consulting Provider: NUTRITION Reason for Dietary Consult: Diet Education Discharging clinician: Ulises Meier Anticipated date of discharge: 10/30/18 - Constitutional Vitals: Temp Pulse Resp BP Pulse Ox 98.2 F 87 16 158/91 97 10/29/18 07:25 10/29/18 07:25 10/29/18 07:25 10/29/18 07:25 10/29/18 04:25 Exam: Gen.: Alert and oriented, no acute distress Head: Atraumatic, normocephalic Eyes: EOMI, anicteric ENT: Mucous membranes moist, oropharynx clear CV: Grade 3 systolic murmur present, regular rate and rhythm Respiratory: Clear to auscultation bilaterally, no wheezes, rales, rhonchi Abdomen: Soft, nontender, nondistended, no guarding Extremities: No rashes, bleeding Neuro: Dysarthria noted, right lower extremity weakness noted, sensation intact - Patient Status Disposition: Transfer Inpatient Rehab Fac Condition: Good Functional capacity at discharge: uses cane/walker Overall status at discharge: patient is progressing back to baseline - Discharge Instructions Follow Up With: Norberto Henriquez MD [Primary Care Provider] - 11/05/18 5:30 pm Additional Instructions: Please take your insulin as prescribed. Levemir 22 units to be taken once each morning and lispro to be taken 3 times a day with meals on a sliding scale based on the following guidelines: For blood glucose between 140 and 180 take 2 units; for blood glucose 181-220 take 4 units; for blood glucose 221-260 take 6 units; for blood glucose 261-300 take 8 units; for blood glucose 301-350 take 10 units; for blood glucose 351-400 take 12 units; for blood glucose readings greater than 400 take 14 units. You must take your insulin with meals 3 times a day. Please return to the emergency department immediately should you experience any new or worsening symptoms; including but not limited to severe fatigue, weakness, malaise, nausea, vomiting, lightheadedness, dizziness. - Diet and Activity Activity: ambulate only with your walker, as per physical therapy Diet: diabetic diet, low salt diet <Siva Dalton - Last Filed: 10/30/18 16:45> Orders not resulted at time of discharge: Pending orders 10/31/18 04:00 BMP [Basic Metabolic Panel] AM 0400 Date of Encounter: 10/30/18 - Discharge Diagnosis (1) DKA (diabetic ketoacidoses) Status: Resolved Qualifiers: Diabetes mellitus type: type 1 Diabetes mellitus complication detail: without coma Qualified Code(s): E10.10 - Type 1 diabetes mellitus with ketoacidosis without coma (2) DVT prophylaxis Status: Acute (3) CVA (cerebral vascular accident) Status: Chronic Qualifiers: CVA mechanism: unspecified Qualified Code(s): I63.9 - Cerebral infarction, unspecified (4) Hemorrhagic stroke Priority: Secondary Status: Chronic (5) Hypertension Status: Chronic Qualifiers: Hypertension type: essential hypertension Qualified Code(s): I10 - Essential (primary) hypertension (6) Diabetes Priority: Secondary Status: Chronic Qualifiers: Diabetes mellitus type: type 2 Diabetes mellitus jail insulin use: with jail use Diabetes mellitus complication status: with hyperglycemia Qualified Code(s): E11.65 - Type 2 diabetes mellitus with hyperglycemia; 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 Sampson is a 63 year old female - Time Spent with Patient Total time spent providing and/or coordinating discharge services: Date of admission: 10/25/18 13:00 Primary care physician: Norberto Henriquez Consults: 10/25/18 17:14 Consult to Nutrition [CONS] Routine Comment: recent weight lose Consulting Provider: NUTRITION Reason for Dietary Consult: Diet Education 10/29/18 10:45 Consult to Occupational Therapy [CONS] Routine Comment: Evaluate, develop and implement POC Reason for Consult: Assess needs in anticipation of discharge Does patient have active BEDREST order?: No Is patient medically & hemodynamically stable?: Yes Consult to Physical Therapy [CONS] Routine Comment: Evaluate, develop and implement POC Reason for Consult: Assess physical capacity for discharge home Does patient have active BEDREST order?: No Is patient medically & hemodynamically stable?: Yes - Constitutional Vitals: Temp Pulse Resp BP Pulse Ox 98.2 F 96 16 125/69 96 10/30/18 15:29 10/30/18 15:29 10/30/18 15:29 10/30/18 15:29 10/30/18 15:29 - Attending Attestation I examined this patient and my medical decision-making was reviewed with the Resident Physician on 10/30/18. I agree with the documented findings, disposition and treatment plan as described except to the extent set forth below. Ms Sampson has been hospitalized due to acute DKA due to presumed medication issues. She has improved with treatment. She has been seen by therapy and will be going to SNF. She is afebrile and ready for discharge. Exam: Alert. Comfortable. NC. Neck supple. Heart not tachy. No wheeze. Abd soft. Plan D/C to SNF when arranged. D/C time 34min
[2018-10-29] MEDS: 0.45 % Sodium Chloride w/KCl 20 MEQ/1,000 ML MLS IVC SCH (08:36)
--- NOTE | 2018-10-29 15:27 | Internal Med Progress Note ---
<Ulises Meier Gloria - Last Filed: 10/29/18 15:23> Hospitalist Progress Note - Encounter Date of Encounter: 10/29/18 Time of Encounter: 10:00 - Subjective Interval History: Patient seen and examined at bedside. Reports she feels fine this morning, had no problems overnight. No new or worsening symptoms. Has had a good appetite las t night and this morning. voices a strong desire to be discharged home today. PT/OT has evaluated patient and recommended inpatient rehab for improvement in strength/balance defecits. - Exam Vitals: Temp Pulse Resp BP Pulse Ox 98.0 F 94 18 148/69 97 10/29/18 11:22 10/29/18 11:22 10/29/18 11:22 10/29/18 11:22 10/29/18 04:25 Exam: Gen.: Alert and oriented, no acute distress Head: Atraumatic, normocephalic Eyes: EOMI, anicteric ENT: Mucous membranes moist, oropharynx clear CV: Grade 3 systolic murmur present, regular rate and rhythm Respiratory: Clear to auscultation bilaterally, no wheezes, rales, rhonchi Abdomen: Soft, nontender, nondistended, no guarding Extremities: No rashes, bleeding Neuro: Dysarthria noted, right lower extremity weakness noted, sensation intact - Assessment and Plan (1) DKA (diabetic ketoacidoses) Current Visit: Yes Status: Resolved Assessment and Plan: Present fatigue, weakness, numbness Found to be in DKA, anion gap 16 on admission Has since closed, BMP this morning revealed anion gap 10 Presented with a metabolic acidosis, pH 7.3, bicarbonate 14 Bicarbonate this morning up to 20, metabolic acidosis resolved DKA likely precipitated by dehydration secondary to poor oral intake Infectious etiology suspected this time Insulin drip stopped October 27 Basal insulin has been titrated up, increased from 15-->22 today Blood glucose 250 this morning, will continue to titrate up Plan: -22 units Levemir in morning -continue SSI TIDWM (2) Hypertension Current Visit: Yes Status: Acute Assessment and Plan: Patient has known history of hypertension has been persistently hypertensive on admission, one reading systolic greater than 200 Patient has required several doses of PRN Lopressor Plan: -Continue to monitor -PRN Lopressor -Home Lisinopril has been restarted -Follow-up O/P for stricter BP control (3) CVA (cerebral vascular accident) Current Visit: No Status: Acute Assessment and Plan: Patient had a hemorrhagic stroke recommended Patient does have persistent focal neurological deficits Continues to have dysarthria and regular extremity weakness Will need evaluated by PT/OT prior to discharge (4) Hypokalemia Current Visit: Yes Status: Acute Assessment and Plan: Secondary to DKA Continue to monitor Replace as indicated DVT Prophylaxis: SCDs - Time Spent with Patient Total time spent is greater than 50% in coordination of care (as documented) at patient's floor/unit and/or counseling patient: Internal Medicine: Result - Labs CBC & Chem 7: 10/25/18 10:35 10/29/18 05:47 Labs: BMP 10/29/18 05:47 Sodium 140 Potassium 3.7 Chloride 105 Carbon Dioxide 25 BUN 10 Creatinine 0.69 Glucose 251 H Calcium 9.2 Consult Discharge Plan - Plan Referrals: Norberto Henriquez MD [Primary Care Provider] - <Siva Dalton - Last Filed: 10/29/18 17:30> Hospitalist Progress Note - Encounter Date of Encounter: 10/29/18 - Exam Vitals: Temp Pulse Resp BP Pulse Ox 98.2 F 91 16 141/75 97 10/29/18 15:56 10/29/18 15:56 10/29/18 15:56 10/29/18 15:56 10/29/18 04:25 - Assessment and Plan (1) DKA (diabetic ketoacidoses) Current Visit: Yes Status: Resolved (2) DVT prophylaxis Current Visit: No Status: Acute (3) CVA (cerebral vascular accident) Current Visit: No Status: Acute (4) Hemorrhagic stroke Current Visit: Yes Status: Acute (5) Hypertension Current Visit: Yes Status: Acute - Time Spent with Patient Total time spent is greater than 50% in coordination of care (as documented) at patient's floor/unit and/or counseling patient: Internal Medicine: Result - Labs CBC & Chem 7: 10/25/18 10:35 10/29/18 05:47 Labs: BMP 10/29/18 05:47 Sodium 140 Potassium 3.7 Chloride 105 Carbon Dioxide 25 BUN 10 Creatinine 0.69 Glucose 251 H Calcium 9.2 - Attending Attestation I examined this patient and my medical decision-making was reviewed with the Resident Physician on 10/29/18. I agree with the documented findings, disposition and treatment plan as described except to the extent set forth below. Ms Sampson is currently admitted for hyperglycemia. She remains moderate to high risk due to potential for worsening clinical status. Ms Sampson feels OK. Says her sugars are at baseline for her now. No CP or SOB. No fever. PT/OT rec swing bed. Exam: Alert. Comfortable NC. Mucus membranes dry Heart not tachy. No wheeze. Abd soft. No edema. Moves extremities but R side weaker. Working on d/c planning to SNF at this time. <Ulises Meier - Last Filed: 10/29/18 15:23> (1) DKA (diabetic ketoacidoses) Qualifiers: Diabetes mellitus type: type 1 Diabetes mellitus complication detail: without coma Qualified Code(s): E10.10 - Type 1 diabetes mellitus with ketoacidosis without coma (3) CVA (cerebral vascular accident) Qualifiers: CVA mechanism: unspecified Qualified Code(s): I63.9 - Cerebral infarction, unspecified <Siva Dalton - Last Filed: 10/29/18 17:30> (1) DKA (diabetic ketoacidoses) Qualifiers: Diabetes mellitus type: type 1 Diabetes mellitus complication detail: without coma Qualified Code(s): E10.10 - Type 1 diabetes mellitus with ketoacidosis without coma (3) CVA (cerebral vascular accident) Qualifiers: CVA mechanism: unspecified Qualified Code(s): I63.9 - Cerebral infarction, unspecified (5) Hypertension Qualifiers: Hypertension type: essential hypertension Qualified Code(s): I10 - Essential (primary) hypertension
[2018-10-30 06:36] LABS: BUN/Creatinine Ratio 15 (6-26); Blood Urea Nitrogen 10 mg/dL (8-23); Calcium 9.1 mg/dL (8.6-10.3); Carbon Dioxide 25 mEq/L (23-29); Chloride 101 mEq/L (98-107); Glucose 273 mg/dL (70-105); Magnesium 1.7 mg/dL (1.6-2.6); Osmolality,Calculated 303 (280-300); Potassium 3.7 mEq/L (3.5-5.1); Sodium 142 mEq/L (136-145); eGFR For African Americans > 60 (> 60); eGFR For Non-African Americans > 60 (> 60)
[2018-10-30] MEDS: Lisinopril 20 MG TABLET PO SCH (08:07)
[2018-10-30] MEDS: Insulin LISPRO 300 UNITS/3 ML VIAL SQ SCH ×3 (08:08→15:56)
[2018-10-30] MEDS: Insulin DETEMIR 100 UNIT/ML X5UNITS SQ SCH (08:08)
--- NOTE | 2018-10-30 11:51 | Physician Discharge Referral ---
ExtendedCare Referral Info Provider in Charge after Transfer: PCP - Diagnosis (1) DKA (diabetic ketoacidoses) Priority: Primary Status: Resolved (2) Hypertension Priority: Secondary Status: Chronic (3) CVA (cerebral vascular accident) Priority: Secondary Status: Chronic (4) Hypokalemia Priority: Secondary Status: Resolved Prognosis: Good Aware of Diagnosis: Patient Aware of Prognosis: Patient - Transfer Medications Home Medications: Atorvastatin [Lipitor] 40 mg PO HS 06/09/17 [History] Levothyroxine [Synthroid] 75 mcg PO 0630 06/09/17 [History] Meloxicam [Mobic] 7.5 mg PO DAILY 06/09/17 [History] Sertraline [Zoloft] 100 mg PO DAILY 06/09/17 [History] Cyclobenzaprine [Flexeril] 10 mg PO HS 05/23/18 [History] Empagliflozin [Jardiance] 10 mg PO DAILY 05/23/18 [History] Lisinopril [Zestril] 20 mg PO DAILY 05/23/18 [History] Calcium Carbonate [Calcium] 500 mg PO DAILY 10/25/18 [History] Insulin DETEMIR [Levemir] 22 unit SQ DAILY [id number] 10/30/18 [Rx] Insulin LISPRO [HumaLOG] 0 units SQ HS vial 10/30/18 [Rx] Insulin LISPRO [HumaLOG] 0 units SQ TIDAC vial 10/30/18 [Rx] Allergies/Adverse Reactions: Allergy/AdvReac Type Severity Reaction Status Date / Time sulfamethoxazole Allergy Gastrointestinal Verified 10/26/18 13:49 [From Bactrim] Upset trimethoprim [From Bactrim] Allergy Gastrointestinal Verified 10/26/18 13:49 Upset - Respiratory Orders None Smoking Cessation: Smoking cessation has been advised. For more information, call the [place] Tobacco Quit Line at 5-982-GRZY-NOW. - Ancillary Orders May use pressure relief devices daily prn - Advance Directives Code Status: Full Code - Mobility Orders Ambulate - Rehabiliation Orders Rehab Potential: Good Other: As per physical therapy recommendations - Diet Orders No Concentrated Sweets, Cardiac CERTIFICATION: I certify that the transfer of the above named patient to an Extended Care Facility is necessary for the continuing treatment of the diagnosis listed. The above information is true and accurate reflection of patient's current condition. Confidential - Redisclosure prohibited without a patient's written consent.
[2018-10-30 15:35] VITALS: BP 125/69
--- NOTE | 2018-10-30 17:08 | Physician Discharge Referral ---
Home Health/Hosp Referral Info Transfer to: Home Health Attending Provider: PCP Provider in Charge Post Discharge: PCP - Diagnosis (1) DKA (diabetic ketoacidoses) Priority: Primary Status: Resolved (2) Hypertension Priority: Secondary Status: Acute (3) CVA (cerebral vascular accident) Priority: Secondary Status: Chronic (4) Hypokalemia Priority: Secondary Status: Resolved - Respiratory Orders Smoking Cessation: Smoking cessation has been advised. For more information, call the [place] Tobacco Quit Line at 7-736-WWWK-NOW. - Diet/Nutrition Diet/Nutrition Orders: Regular (Diabetic diet) - Activity Activity Orders: Up ad mark - Services Needed Following services are medically necessary services: Nursing, Home Health Aide, Physical Therapy, Occupational Therapy - Transfer Medications Home Medications: Atorvastatin [Lipitor] 40 mg PO HS 06/09/17 [History] Levothyroxine [Synthroid] 75 mcg PO 0630 06/09/17 [History] Meloxicam [Mobic] 7.5 mg PO DAILY 06/09/17 [History] Sertraline [Zoloft] 100 mg PO DAILY 06/09/17 [History] Cyclobenzaprine [Flexeril] 10 mg PO HS 05/23/18 [History] Empagliflozin [Jardiance] 10 mg PO DAILY 05/23/18 [History] Lisinopril [Zestril] 20 mg PO DAILY 05/23/18 [History] Calcium Carbonate [Calcium] 500 mg PO DAILY 10/25/18 [History] Insulin DETEMIR [Levemir] 22 unit SQ DAILY [id number] 10/30/18 [Rx] Insulin LISPRO [HumaLOG] 0 units SQ HS vial 10/30/18 [Rx] Insulin LISPRO [HumaLOG] 0 units SQ TIDAC vial 10/30/18 [Rx] Allergies/Adverse Reactions: Allergy/AdvReac Type Severity Reaction Status Date / Time sulfamethoxazole Allergy Gastrointestinal Verified 10/26/18 13:49 [From Bactrim] Upset trimethoprim [From Bactrim] Allergy Gastrointestinal Verified 10/26/18 13:49 Upset Certification: Further, I certify that my clinical findings support that this patient is homebound (i.e. absences from home require considerable and taxing effort and are for medical reasons or shinto services or infrequently or short duration when for other reasons) because: Homebound Reason: Patient requires assistance of a person or device to safely leave home, Leaving home requires considerable and taxing effort due to condition Attestation: My signature below is to certify that this patient is under my care and that I, or nurse practitioner, or a physician's assistant sales manager working with me, has a efon-or-gond encounter with this patient.
== END 2018-10-30 19:08 ==
LOC: 2NENU 09:13 → EMEROOARM 09:13 → SUATTDRO 13:00 → 2NENU 14:20
PROVIDERS: ADMIT Internal Medicine; ATTEND Internal Medicine

== ENCOUNTER 2019-03-19 14:58 | Observation (INO) ==
[2019-03-19 15:35] LABS: Basophils # 0.1 K/mcL (0.0-0.2); Basophils % 0.5 %; Eosinophils # 0.2 K/mcL (0.0-0.6); Eosinophils % 1.6 %; Hematocrit 37.4 % (35.3-44.9); Hemoglobin 12.3 g/dL (11.5-15.4); Immature Granulocytes % 0.2 % (0-4); Lymphocytes # 1.8 K/mcL (0.6-4.6); Lymphocytes % 19.7 %; Mean Corpuscular HGB Conc 32.9 g/dL (31.6-35.5); Mean Corpuscular Hemoglobin 26.9 pg (28.0-33.3); Mean Corpuscular Volume 81.7 fL (83.0-100.0); Mean Platelet Volume 10.3 fL (9.4-12.4); Monocytes # 0.5 K/mcL (0.0-1.3); Monocytes % 5.4 %; Neutrophils # 6.7 K/mcL (1.6-8.9); Platelet Count 209 K/mcL (140-400); Red Blood Count 4.58 M/mcL (3.82-4.97); Segmented Neutrophils % 72.6 %; White Blood Count 9.2 K/mcL (4.3-11.1)
[2019-03-19 15:38] LABS: Prothrombin Time 11.4 Seconds (9.4-12.1)
[2019-03-19 15:41] LABS: Activated Partial Thrombo Time 31.2 Seconds (26.0-36.0)
[2019-03-19 16:03] LABS: BUN/Creatinine Ratio 21 (6-26); Blood Urea Nitrogen 18 mg/dL (8-23); Calcium 9.5 mg/dL (8.6-10.3); Carbon Dioxide 25 mEq/L (23-29); Chloride 102 mEq/L (98-107); Glucose 227 mg/dL (70-105); Osmolality,Calculated 297 (280-300); Potassium 3.3 mEq/L (3.5-5.1); Sodium 139 mEq/L (136-145); Troponin I < 0.03 ng/mL (< 0.04); eGFR For African Americans > 60 (> 60); eGFR For Non-African Americans > 60 (> 60)
[2019-03-19 16:09] LABS: Thyroid Stimulating Hormone 4.255 mcIU/mL (0.340-5.600)
[2019-03-19] MEDS ORDERED: Isovue-370 500 ML BOTTLE IVP ONE (16:13)
[2019-03-19] MEDS ORDERED: 0.9 % Sodium Chloride 1,000 ML IVC STA (16:32)
[2019-03-19 17:31] LABS: Bilirubin,Urine Large (Negative); Blood,Urine Large (Negative); Clarity,Urine Clear (Clear); Color,Urine Yellow (Yellow); Glucose,Urine (UA) 500 mg/dL (Normal); Ketones,Urine Negative (Negative); Leukocyte Esterase,Urine Negative (Negative); Nitrite,Urine Negative (Negative); Protein,Urine Trace mg/dL (Neg-Trace); Urobilinogen,Urine Normal (Normal)
[2019-03-19 17:37] LABS: Bacteria,Urine None Seen per hpf (None-Few); Hyaline Casts,Urine None Seen per lpf (None-Few); RBC,Urine TNTC per hpf (0-3); Squamous Epithelial Cell,Urine Many per lpf (None-Few)
[2019-03-19] MEDS ORDERED: Naloxone 0.4 MG/ML INJ IVP PRN (18:11)
[2019-03-19] MEDS ORDERED: Ondansetron 4 MG/2 ML VIAL IVP PRN (18:11)
[2019-03-19] MEDS ORDERED: *HR* Dextrose 50 % in Water (Syg) 50 ML SYRINGE IVP PRN (18:23)
[2019-03-19] MEDS ORDERED: D5% in Water 1,000 ML IVC PRN (18:23)
[2019-03-19] MEDS ORDERED: Dextrose Gel 15 GM/37.5 ML TUBE PO PRN ×2 (18:23)
[2019-03-19] MEDS: Insulin DETEMIR 100 UNIT/ML X5UNITS SQ SCH (23:10)
[2019-03-19] MEDS: *HR* Heparin 5,000 UNIT/ML VIAL SQ SCH (23:10)
[2019-03-19] MEDS: 0.9 % Sodium Chloride 1,000 ML IVC SCH (23:10)
[2019-03-20] MEDS: *HR* Heparin 5,000 UNIT/ML VIAL SQ SCH ×3 (05:56→21:13)
[2019-03-20] MEDS: Lisinopril 20 MG TABLET PO SCH (07:37)
[2019-03-20] MEDS: Insulin LISPRO 300 UNITS/3 ML VIAL SQ SCH ×3 (07:38→17:54)
[2019-03-20 07:40] LABS: Basophils % 0.6 %; Eosinophils # 0.2 K/mcL (0.0-0.6); Eosinophils % 2.6 %; Hematocrit 33.6 % (35.3-44.9); Hemoglobin 10.9 g/dL (11.5-15.4); Immature Granulocytes % 0.1 % (0-4); Lymphocytes # 1.9 K/mcL (0.6-4.6); Mean Corpuscular HGB Conc 32.4 g/dL (31.6-35.5); Mean Corpuscular Hemoglobin 27.2 pg (28.0-33.3); Mean Corpuscular Volume 83.8 fL (83.0-100.0); Mean Platelet Volume 10.2 fL (9.4-12.4); Monocytes # 0.5 K/mcL (0.0-1.3); Monocytes % 6.4 %; Neutrophils # 4.5 K/mcL (1.6-8.9); Platelet Count 158 K/mcL (140-400); Red Blood Count 4.01 M/mcL (3.82-4.97); Red Cell Distribution Width 13.7 % (11.5-14.5); Segmented Neutrophils % 63.3 %
[2019-03-20 07:54] LABS: BUN/Creatinine Ratio 15 (6-26); Blood Urea Nitrogen 10 mg/dL (8-23); Carbon Dioxide 24 mEq/L (23-29); Chloride 105 mEq/L (98-107); Magnesium 1.7 mg/dL (1.6-2.6); Phosphorous 2.9 mg/dL (2.7-4.5); Potassium 3.6 mEq/L (3.5-5.1); Sodium 139 mEq/L (136-145); eGFR For African Americans > 60 (> 60); eGFR For Non-African Americans > 60 (> 60)
[2019-03-20 08:20] LABS: Folate 16.3 ng/mL (3.0-16.0)
[2019-03-20 08:39] LABS: Glucose 153 mg/dL (70-105); Osmolality,Calculated 290 (280-300)
[2019-03-20] MEDS ORDERED: Cyanocobalamin (B-12) 1,000 MCG/ML VIAL IM ONE (10:12)
[2019-03-20] MEDS: Insulin DETEMIR 100 UNIT/ML X5UNITS SQ SCH (21:18)
[2019-03-20] MEDS: 0.9 % Sodium Chloride 1,000 ML IVC SCH (21:19)
[2019-03-21] MEDS: *HR* Heparin 5,000 UNIT/ML VIAL SQ SCH (06:13)
[2019-03-21 06:31] LABS: Basophils % 0.5 %; Eosinophils # 0.2 K/mcL (0.0-0.6); Eosinophils % 3.7 %; Hematocrit 32.8 % (35.3-44.9); Hemoglobin 10.8 g/dL (11.5-15.4); Immature Granulocytes % 0.2 % (0-4); Lymphocytes # 1.8 K/mcL (0.6-4.6); Lymphocytes % 32.8 %; Mean Corpuscular HGB Conc 32.9 g/dL (31.6-35.5); Mean Corpuscular Hemoglobin 26.5 pg (28.0-33.3); Mean Corpuscular Volume 80.6 fL (83.0-100.0); Mean Platelet Volume 10.2 fL (9.4-12.4); Monocytes # 0.4 K/mcL (0.0-1.3); Monocytes % 6.4 %; Neutrophils # 3.2 K/mcL (1.6-8.9); Platelet Count 163 K/mcL (140-400); Red Blood Count 4.07 M/mcL (3.82-4.97); Red Cell Distribution Width 13.5 % (11.5-14.5); Segmented Neutrophils % 56.4 %; White Blood Count 5.6 K/mcL (4.3-11.1)
[2019-03-21 06:52] LABS: BUN/Creatinine Ratio 16 (6-26); Blood Urea Nitrogen 10 mg/dL (8-23); Calcium 8.9 mg/dL (8.6-10.3); Carbon Dioxide 22 mEq/L (23-29); Chloride 105 mEq/L (98-107); Glucose 191 mg/dL (70-105); Osmolality,Calculated 296 (280-300); Potassium 3.9 mEq/L (3.5-5.1); Sodium 141 mEq/L (136-145); eGFR For African Americans > 60 (> 60); eGFR For Non-African Americans > 60 (> 60)
[2019-03-21] MEDS: Insulin LISPRO 300 UNITS/3 ML VIAL SQ SCH ×2 (08:36→11:25)
[2019-03-21] MEDS: Lisinopril 20 MG TABLET PO SCH (08:36)
[2019-03-21] MEDS ORDERED: Cyanocobalamin (B-12) 1,000 MCG TABLET PO SCH (09:00)
[2019-03-21] MEDS ORDERED: Aspirin Enteric Coated 81 MG Tablet PO SCH (09:00)
[2019-03-21] MEDS ORDERED: NON-FORMULARY MEDICATION 1 EACH EACH (Atorvastatin Calcium [Lipitor] 80 MG) PO SCH (09:00)
[2019-03-21 11:18] VITALS: BP 157/87
== END 2019-03-21 14:17 | disposition home or self-care (01) ==
LOC: 2ANU 14:58 → EMEROOARM 14:58 → SUATTDRO 19:07 → 2ANU 19:37
PROVIDERS: ADMIT Internal Medicine; ATTEND Family Medicine